=== PATIENT | female | born 1940 | race Caucasian/White ===

== ENCOUNTER 2017-10-01 19:24 | Inpatient (IN) | payer MEDICARE, BC ==
[~2017-10-01] VITALS: Ht 160 cm; Wt 67.1 kg
[~2017-10-01 19:24] MED LIST: ACETAMINOPHEN650 M5 PO; ACETAMINOPHEN650 MG RECTAL; ALBUTEROL SULFAT4 MG PO; ALDACTONE25 MG PO; AMBIEN 10 MG TA10 MG PO; AMBIEN 5 MG TABL5 M1 PO; AMLODIPINE BESYL5 MG; AMOXICILLIN/POTASSIU PO; APAP500 PO; ASPIRIN325 PO; ASPIRIN81 M2 PO; ATENOLOL 50MG T50 MG PO; ATORVASTATIN CA40 MG PO; BACTRIM DS TAB1 EACH PO; BAYER CHEWABLE81 MG PO; BROVANA15 MCG/2 M INH; CARDIZEM CD 30300 M1 PO; CARDIZEM120 MG PO; CARVEDILOL3.125 MG PO; CATAPRES OR; CELEXA20 MG PO; CELEXA40 MG PO; CENTRUM SILVER1 EAC4 PO; CIPRO500 MG PO; CO Q-10100 MG PO; COLACE 100 MG100 MG PO; COLACE100 MG PO; COZAAR 25 MG TA25 M1 PO; COZAAR 25 MG TA25 M2 PO; COZAAR 25 MG TA25 MG; CRESTOR10 MG PO; DOXYCYCLINE 10100 MG PO; DUONEB 2.5-0.5 M3 ML IH; DUONEB 2.5-0.5 M3 ML INH; ELIQUIS2.5 MG PO; ELIQUIS5 MG PO; FERROUS SULFAT325 MG PO; FLUOXETINE HCL20 M1 PO; FOLBIC RF TABL1 EACH PO; GLIPIZIDE XL10 MG PO; GLUCOPHAGE1000 MG PO; HCTZ PO; HUMALOG100 UNIT/1 SUBQ; HYDROCHLOROTH12.5 M1 PO; HYDROCODON-ACE1 EAC7; HYDROXYZINE HCL10 M1 PO; HYDROXYZINE HCL10 M2 PO; HYDROXYZINE HCL25 M1 PO; HYZAAR 50-12.51 EACH PO; IRON325 PO; KLOR-CON 1010 MEQ PO; LANOXIN 0.120.125 M3 PO; LASIX 40 MG TAB40 M2 PO; LASIX 80 MG TAB80 MG PO; LEVAQUIN 250 M250 MG PO; LEVAQUIN 500 M500 M5 PO; LEVEMIR SUBQ; LEVOTHYROXINE 0.1 MG PO; LEVOXYL75 MCG PO; LYRICA 75 MG CA75 MG PO; MAGOX 400400 MG PO; METAMUCIL1 EAC1 PO; METFORMIN HCL500 MG PO; METOLAZONE 5 MG5 MG PO; NAPROSYN500 MG PO; NIACIN 100MG T100 M1 PO; NIACIN100 GM; NITROGLYCERIN0.4 MG SL; NITROGLYCERIN0.4 MG SUBLING; NORCO 5-325 TA1 EACH PO; NORVASC 5 MG TAB5 MG PO; NOVOLOG100 UNIT/1 SQ; NOVOLOG100 UNIT/1 SUBQ; OMEPRAZOLE20 MG PO; OXYCODONE HCL 55 MG PO; PACERONE 200 M200 M1 PO; PERCOCET 10-321 EACH PO; PERCOCET PO; PLAVIX 75 MG TA75 M1 PO; PREDNISONE 10 M10 M1 PO; PREDNISONE 10 M10 MG PO; PROAIR HFA8.5 GM INH; PULMICORT0.25 MG/3 INH; PULMICORT0.5 MG/22 INH; ROBAXIN500 MG PO; SENOKOT-S1 TA1 PO; SENOKOT8.6 MG PO; SINGULAIR 10 MG10 M1 PO; STOOL SOFTENER240 MG PO; SYNTHROID100 MCG PO; SYNTHROID75 MCG PO; TENORMIN50 MG PO; TESSALON PERLE100 MG PO; THEOPHYLLINE S300 M1 PO; TYLENOL325 MG PO; ULTRACET TABLET1 TAB PO; XANAX 0.5 MG0.5 MG PO; XARELTO10 M1 PO; XOPENEX0.63 MG/3 INH; ZPAK PO; [UNRECOGNIZED DRUG - REMARK]
[2017-10-01 19:26] VITALS: BP 68/34
[2017-10-01 20:10] LABS: ABSOLUTE EOSINOPHILS 0.1 thou/uL (0.0-0.7); ABSOLUTE LYMPHOCYTES 1.6 thou/uL (0.8-5.3); ABSOLUTE MONOCYTES 0.7 thou/uL (0.0-1.2); ABSOLUTE NEUTROPHILS 4.9 thou/uL (1.6-8.1); BASOPHILS 0.7 %; EOSINOPHILS 1.2 %; HEMOGLOBIN 9.7 gm/dL (12.0-15.0); LYMPHOCYTES 21.8 %; MCH 30.5 pg (26.0-34.0); MCHC 32.2 g/dL (28.0-37.0); MCV 94.6 fL (80.0-100.0); MONOCYTES 9.8 %; MPV 8.9 fl. (7.2-11.1); NUCLEATED RBCS 0 /100WBC; PLATELET COUNT* 172 thou/uL (150-400); POLYS 66.5 %; RBC 3.17 mil/uL (4.20-5.00); RDW-CV 16.5 % (10.5-14.5); WBC 7.3 thou/uL (4.0-11.0)
[2017-10-01 20:19] LABS: CREATININE 3.6 mg/dL (0.6-1.3); POTASSIUM 3.5 mmol/L (3.5-5.1)
[2017-10-01 20:21] LABS: INR 1.3
[2017-10-01 20:30] LABS: ALBUMIN 2.5 g/dL (3.4-5.0); TOTAL BILIRUBIN 0.6 mg/dL (<0.1-1.0); TOTAL PROTEIN 5.8 g/dL (6.4-8.2); TROPONIN-I LEVEL 0.29 ng/mL (<0.06)
[2017-10-01 21:21] LABS: INFLUENZA A ANTIGEN None Detected (None Detect); INFLUENZA B ANTIGEN None Detected (None Detect)
[2017-10-01 21:26] LABS: URINE BILIRUBIN NEGATIVE (Negative); URINE BLOOD NEGATIVE (Negative); URINE CLARITY CLEAR; URINE COLOR YELLOW; URINE GLUCOSE-RANDOM NEGATIVE (Negative); URINE KETONES NEGATIVE (Negative); URINE LEUKOCYTES-REFLEX NEGATIVE (Negative); URINE NITRITE-REFLEX NEGATIVE (Negative); URINE PROTEIN NEGATIVE (Negative); URINE UROBILINOGEN 0.2 E.U./dl (0.2-1.0)
[2017-10-01 23:29] VITALS: BP 79/40
[2017-10-01 23:30] VITALS: BP 64/32
[2017-10-01 23:45] VITALS: BP 83/41
[2017-10-02] VITALS (23 sets, daily range): BP systolic 82–162; BP diastolic 48–125
[2017-10-02 03:44] LABS: HEMATOCRIT 23.6 % (37.0-47.0); MCH 30.9 pg (26.0-34.0); MCHC 32.5 g/dL (28.0-37.0); MCV 95.1 fL (80.0-100.0); MPV 8.8 fl. (7.2-11.1); RBC 2.48 mil/uL (4.20-5.00); RDW-CV 17.1 % (10.5-14.5); WBC 8.3 thou/uL (4.0-11.0)
[2017-10-02 04:25] LABS: ALBUMIN 1.9 g/dL (3.4-5.0); CALCIUM 7.4 mg/dL (8.5-10.1); CREATININE 2.9 mg/dL (0.6-1.3); HEMOGLOBIN 7.7 gm/dL (12.0-15.0); MAGNESIUM 1.7 mg/dL (1.8-2.4); POTASSIUM 3.3 mmol/L (3.5-5.1); TOTAL BILIRUBIN 0.4 mg/dL (<0.1-1.0); TOTAL PROTEIN 4.6 g/dL (6.4-8.2); TROPONIN-I LEVEL 0.29 ng/mL (<0.06)
--- NOTE | 2017-10-02 13:11 | EKG ---
[place] [address] ELECTROCARDIOGRAM REPORT Name: SCOTTY SANTAMARIA Room: [address] ADM IN [facility]#: [id number] Admission: 10/01/17 Attend Phys: Mart Rosario, Discharge: Date of : 36 Report #: [id number] THIS REPORT FOR: //name// [facility] ED Test Date: 2017-10-01 Test Time: 19:34:59 Pat Name: SCOTTY SANTAMARIA Department: Room: [facility] Gender: F Signal Worker: ELMIRA : 1940 Requested By: Michelle Patel Order Number: [id number] MD: Benny Baldwin Measurements Intervals [place] Rate: 58 P: -2 GA: 173 QRS: -22 QRSD: 97 T: 14 QT: 513 QTc: 504 Interpretive Statements Sinus rhythm Borderline left axis deviation Prolonged QT interval Compared to ECG 09/12/2017 07:49:04 Prolonged QT interval now present Ectopic atrial rhythm no longer present Intraventricular conduction delay no longer present Myocardial infarct finding no longer present Electronically Signed On 10-02-2017 13:11:44 HOME HEALTH LPN by Benny Baldwin [email or web address] <ELECTRONICALLY SIGNED> By: Benny Baldwin MD, FACC 10/02/17 1311 33 33 Benny Baldwin MD, FACC /EPI
[2017-10-03] VITALS (22 sets, daily range): BP systolic 88–159; BP diastolic 42–119
[2017-10-03 04:22] LABS: ALBUMIN 1.9 g/dL (3.4-5.0); CALCIUM 7.9 mg/dL (8.5-10.1); CREATININE 2.2 mg/dL (0.6-1.3); MAGNESIUM 1.7 mg/dL (1.8-2.4); PHOSPHORUS* 1.8 mg/dL (2.5-4.9); POTASSIUM 3.3 mmol/L (3.5-5.1)
--- NOTE | 2017-10-03 08:46 | CON ---
[address] [address] CONSULTATION Name: SCOTTY SANTAMARIA Room: [address] IN .R.#: [id number] Admission: 10/01/17 Attend Phys: Mart Rosario, Discharge: Date of : 38 Report #: [id number] THIS REPORT FOR: //name// CC: Danny Rosario DATE OF SERVICE: 10/02/2017 ATTENDING PHYSICIAN: Mart Rosario MD REASON FOR EVALUATION: Sepsis, pneumonitis. HISTORY OF PRESENT ILLNESS: Chart reviewed, patient examined. This is a 77-year-old female with a fairly extensive medical history, does have diabetes mellitus. She is somewhat debilitated, resides in a chcf who had a period of progressive dyspnea, also some encephalopathy, associated cough. She was transitioned to the Emergency Room where she was evaluated. Influenza antigen was negative. Chest x-ray showed chronic changes of cardiomegaly without evidence of congestive heart failure. She did have some hemodynamic instability and was continued care in the Intensive Care Unit, now confirmed to have a positive blood culture. She is generally lucid, is quite weak. Denies urinary difficulties. The UA was in fact unrevealing, empirically dosed with ceftriaxone and vancomycin. ALLERGIES: LISTED TO PENICILLIN WHICH CAUSES URTICARIA. CURRENT MEDICATIONS: Include senna, multivitamin, magnesium oxide, budesonide, aspirin, amiodarone, apixaban, ferrous sulfate, levothyroxine, is on norepinephrine as well per drip. PAST MEDICAL HISTORY: As noted above, history of reactive airway with asthma, hypothyroidism, hyperlipidemia, previous TIAs, diabetes mellitus, hypertension, COPD, cardiomyopathy with history of congestive heart failure, has known coronary artery disease with previous stenting, previous history of breast cancer, tongue cancer. SOCIAL HISTORY: Former smoker, occasional ethanol. FAMILY HISTORY: Noncontributory. REVIEW OF SYSTEMS: As above. PHYSICAL EXAMINATION: GENERAL: She is alert, cooperative, is in mild distress. She is on supplemental oxygen per nasal cannula. She is slightly anxious, [place] [address] CONSULTATION Name: SCOTTY SANTAMARIA Room: [address]#: [id number] Admission: 10/01/17 Attend Phys: Mart Rosario, Discharge: Date of : 38 Report #: [id number] VITAL SIGNS: Temperature 98.7, pulse 83, respirations 20, blood pressure 112/64. SKIN: Warm, dry, no rashes. HEENT: Otherwise, unremarkable. NECK: Supple. LUNGS: Few scattered coarse breath sounds. HEART: Regular. I do not appreciate any murmur. ABDOMEN: Soft, nontender, nondistended. EXTREMITIES: No cyanosis. GENITOURINARY: Deferred. RECTAL: Deferred. LABORATORY DATA: Blood cultures described above, gram-positive cocci 1/2. Electrolytes: Sodium 138, potassium 3.3, chloride 100, bicarbonate is 27, anion gap of 11, BUN and creatinine 88 and 2.9. Glucose of 220. AST of 81, ALT of 106, albumin 1.9, total protein of 4.6. Estimated GFR of 16. CBC: White count of 8.3, H and H 7.7/23.6, platelets of 145. Prealbumin of 14.4. Lactic acid 1.0. Urinalysis unremarkable. Influenza antigen was negative. ASSESSMENT: Sepsis, now with positive blood cultures, not to say with any certainty, but we will treat as if it is positive. We dosed the vancomycin adjusted for her renal failure, again may have an early pneumonitis as well. This really moved fairly quickly. At this point, she seems not to be clinically deteriorating on treatment. See how she does with the current approach. At this point, we would not favor any invasive procedures. We will try to collect a sputum. <ELECTRONICALLY SIGNED> By: Clyde Perdue MD 10/03/17 0846 1417 [id number] Perdue MD /nt
[2017-10-04] VITALS (22 sets, daily range): BP systolic 99–155; BP diastolic 38–87
[2017-10-04 04:58] LABS: HEMOGLOBIN 7.2 gm/dL (12.0-15.0); MCH 31.1 pg (26.0-34.0); MCHC 32.9 g/dL (28.0-37.0); MCV 94.5 fL (80.0-100.0); MPV 8.6 fl. (7.2-11.1); RBC 2.33 mil/uL (4.20-5.00); RDW-CV 17.4 % (10.5-14.5); WBC 3.3 thou/uL (4.0-11.0)
[2017-10-04 05:18] LABS: CALCIUM 8.2 mg/dL (8.5-10.1); POTASSIUM 4.1 mmol/L (3.5-5.1)
[2017-10-04 09:51] LABS: BE -6.6 mmol/L (-2 to +3); HCO3 18.9 mmol/L (22.0-26.0); PCO2 37.7 mmHg (35.0-45.0); pH 7.319 (7.340-7.450)
[2017-10-04 10:32] LABS: PO2 37.2 mmHg (75.0-100.0)
--- NOTE | 2017-10-04 11:21 | CON ---
[address] [address] CONSULTATION Name: SCOTTY SANTAMARIA Room: [address] IN .R.#: [id number] Admission: 10/01/17 Attend Phys: Mart Rosario, Discharge: Date of : 38 Report #: [id number] THIS REPORT FOR: //name// CC: Danny Rosario REASON FOR CONSULTATION: Acute respiratory failure and pneumonia. HISTORY OF PRESENT ILLNESS: The patient is a 77-year-old female patient with history of COPD and chronic respiratory failure. She is on 2 liter oxygen at baseline. She presented through the EMS from [facility] and admitted on 10/01/2017 with a chief complaint of shortness of breath a few hours prior to hospitalization. She was hypotensive, and actually, she was admitted to the ICU and started on vasopressors. She had diabetes mellitus and as mentioned above, lives in a longterm. She had cough and some encephalopathy upon presentation. Her chest x-ray showed some changes and her influenza screen was negative. She required vasopressors until yesterday. Apparently, her oxygenation and respiratory status have been improving with Rocephin and vancomycin, but she had progressive worsening in her chest x-ray for the last few days. This morning, she developed respiratory distress and she was placed on BiPAP. When I saw her, she was on BiPAP, comfortable at 60% and seems to be tolerating that well. Also noted that she started coughing up bloody sputum. She is on Eliquis at baseline. Her echocardiogram demonstrated ejection fraction of 55%, with mitral regurgitation and moderate tricuspid regurgitation. PAST MEDICAL HISTORY: Coronary artery disease, status post PCI in the past, right coronary with mild disease. She has mitral regurgitation. She has diabetes mellitus and chronic kidney disease. History of COPD and chronic respiratory failure, on home oxygen. Previous history of hysterectomy, hemorrhoidectomy, bilateral breast cancer with lump removal, status post tongue surgery for cancer, diabetes mellitus, hypertension, arthritis, D and C in the past, cardiac stents and history of CHF. ALLERGIES: PENICILLIN. MEDICATIONS: Prior to hospitalization, Synthroid, Ambien, Tylenol, metolazone, amiodarone, apixaban, losartan, Lasix 80 mg daily, aspirin and Tylenol p.r.n. CURRENT MEDICATIONS: She is on cefepime, alprazolam. She received Lasix today. She is on nebulization treatment. She is on vancomycin, steroids, pantoprazole, melatonin. She is off Levophed since yesterday. REVIEW OF SYSTEMS: She denied abdominal pain, nausea or vomiting. She denied bleeding tendency, but she started coughing up bloody sputum today. She denied dysuria. She has some bruises on her skin, but no active bleeding from the skin. Rest of the review [place] [address] CONSULTATION Name: SANTAMARIASCOTTY Isabel Room: [address] IN [facility]#: [id number] Admission: 10/01/17 Attend Phys: Mart Rosario, Discharge: Date of : 38 Report #: [id number] SOCIAL HISTORY: Ex-smoker, quit around a year ago. Does not drink alcohol excessively. Does not abuse drugs. Resident of a longterm. PHYSICAL EXAMINATION: VITAL SIGNS: On examination, she was on BiPAP at 60% with saturation 99%, blood pressure was 64/87 and pulse rate of 98. No fever. HEENT: Head normocephalic, atraumatic. Pupils are equal and reactive to light. Extraocular muscle movements intact. External ears look healthy and normal. Oral cavity not examined. She has BiPAP mask in place. NECK: Supple. No palpable lymph node. No palpable thyroid. Trachea central. CHEST: Diminished air movement bilaterally. Crackles and wheezes heard bilaterally, with prolonged expiratory phase. HEART: S1, S2. Faint systolic murmur. ABDOMEN: Benign, soft, lax and nontender. LOWER EXTREMITIES: Trace edema. No calf tenderness. MUSCULOSKELETAL: Normal inspection. No deformities. No contracture. PSYCHIATRIC: Mood and affect slightly confused, but calm on the BiPAP and quiet, tolerating the BiPAP well. NEUROLOGIC: Moving 4 extremities spontaneously. No focal weakness. LABORATORY DATA: Her white blood count upon hospitalization was 7.3, it is 3.3 today; hemoglobin was 9.7, it is 7.2 today and platelets today are 166,000. Her creatinine is 2, which improved when compared to 3.6 upon hospitalization. Potassium 4.1. Her BNP upon presentation was high. Her INR was 1.3. Influenza screen is negative. She had multiple chest x-rays and CT scan showed progressive infiltrate, worsening over the course of hospitalization. IMPRESSION: 1. Krgff-lo-uhbqdgz respiratory failure, hypoxic. 2. Chronic obstructive pulmonary disease exacerbation. 3. Pneumonia. 4. Sepsis. 5. Hypotension. 6. Hemoptysis, no masses. I agree with stopping the anticoagulants at this point due to hemoptysis. I would continue the steroids, antibiotics per ID. I agree with the sputum culture and sensitivity. Continue BiPAP support, she is tolerating that well. We will follow along with ABGs and make adjustment accordingly. Her chest x-rays is worsening. Hopefully, we will try to avoid intubation. I would keep n.p.o. for today. She received Lasix this morning with minimal urine output; we will do a repeat. Continue to monitor her kidney function. [address] [address] CONSULTATION Name: SCOTTY SANTAMARIA Room: [address] IN [facility].#: [id number] Admission: 10/01/17 Attend Phys: Mart Rosario, Discharge: Date of : 38 Report #: [id number] CONDITION: Guarded. PROGNOSIS: Guarded. Thank you for the consult. <ELECTRONICALLY SIGNED> By: Jad Morgan MD 10/04/17 1121 0940 [id number] Morgan MD /nt
[2017-10-04 16:05] LABS: HEMATOCRIT 22.3 % (37.0-47.0); HEMOGLOBIN 7.2 gm/dL (12.0-15.0)
[2017-10-05] VITALS (21 sets, daily range): BP systolic 111–151; BP diastolic 29–61
[2017-10-05 04:14] LABS: HEMATOCRIT 20.7 % (37.0-47.0); MCH 30.8 pg (26.0-34.0); MCHC 32.8 g/dL (28.0-37.0); MPV 9.1 fl. (7.2-11.1); RBC 2.21 mil/uL (4.20-5.00); RDW-CV 17.2 % (10.5-14.5); WBC 6.7 thou/uL (4.0-11.0)
[2017-10-05 04:19] LABS: CALCIUM 8.7 mg/dL (8.5-10.1); MAGNESIUM 2.2 mg/dL (1.8-2.4); POTASSIUM 3.6 mmol/L (3.5-5.1)
[2017-10-05 05:12] LABS: HEMOGLOBIN 6.8 gm/dL (12.0-15.0)
[2017-10-05 11:34] LABS: BE -1.7 mmol/L (-2 to +3); HCO3 22.4 mmol/L (22.0-26.0); PO2 107.2 mmHg (75.0-100.0); pH 7.424 (7.340-7.450)
[2017-10-05 17:33] LABS: HEMATOCRIT 24.5 % (37.0-47.0); HEMOGLOBIN 8.1 gm/dL (12.0-15.0)
[2017-10-06] VITALS (11 sets, daily range): BP systolic 107–139; BP diastolic 36–72
[2017-10-06 03:43] LABS: HEMATOCRIT 23.3 % (37.0-47.0); HEMOGLOBIN 7.8 gm/dL (12.0-15.0); MCHC 33.4 g/dL (28.0-37.0); MCV 92.6 fL (80.0-100.0); MPV 8.5 fl. (7.2-11.1); RBC 2.51 mil/uL (4.20-5.00); RDW-CV 17.2 % (10.5-14.5)
[2017-10-06 03:52] LABS: CREATININE 2.2 mg/dL (0.6-1.3); MAGNESIUM 2.3 mg/dL (1.8-2.4); POTASSIUM 3.7 mmol/L (3.5-5.1)
[2017-10-07] VITALS: BP 136/45
[2017-10-07 04:00] VITALS: BP 131/49
[2017-10-07 08:00] VITALS: BP 144/62
--- NOTE | 2017-10-07 08:41 | CON ---
[address] [address] CONSULTATION Name: SCOTTY SANTAMARIA Room: [address] IN .R.#: [id number] Admission: 10/01/17 Attend Phys: Mart Rosario, Discharge: Date of : 38 Report #: [id number] THIS REPORT FOR: //name// CC: Danny Rosario DATE OF SERVICE: 10/02/2017 INPATIENT CONSULT REQUESTING PHYSICIAN: Mart Rosario MD REASON FOR CONSULTATION: Hypotension, abnormal troponin level, atrial fibrillation. HISTORY OF PRESENT ILLNESS: The patient is a 77-year-old female who was admitted through the Emergency Department via a local nursing facility with hypotension, decreased level of consciousness, and I am asked to see her because her current troponin level was increased to 0.29. She presented in renal failure with increased serum creatinine of 2.9. She is responsive and had transiently required pressors overnight and is still on a low dose of Levophed along with IV fluids. She is lucid this morning though and denies any complaints of chest pain or pressure, which was really not part of her initial presentation. She had not been having weight gain or fluid retention. She carries a diagnosis of coronary artery disease and underwent PCI at this institution in the past. Her presenting ECG did not show any acute ST segment changes. She has been in atrial fibrillation with heart rates well controlled. With this, she is asymptomatic for tachypalpitation. She denies syncope or presyncope. In the past, she has had a prior stroke about 10 years ago, but denies any new neuro symptoms, headaches, blurry vision or visual changes and has no focal neurologic deficits on examination. PAST MEDICAL HISTORY: She has a history of coronary artery disease. In 2014, she underwent a PCI to her left anterior descending coronary artery. The right coronary had mild disease. There are severe disease in branch vessel diagonals. Circumflex has had a previous stent in, but was widely patent. There is no . She had an echocardiogram August of last year, which demonstrated an ejection fraction of 55-60%, epro-dl-blfzgsyk mitral regurgitation, moderate tricuspid regurgitation and no aortic stenosis. She has diabetes mellitus, [place] [address] CONSULTATION Name: SCOTTY SANTAMARIA Room: [address] IN [facility]#: [id number] Admission: 10/01/17 Attend Phys: Mart Rosario, Discharge: Date of : 38 Report #: [id number] COPD, chronic kidney disease, falls and frequent urinary tract and respiratory infection. ALLERGIES: HE HAS ALLERGIES TO PENICILLIN. MEDICATIONS: Her [facility] medications include Tylenol, Ambien, Synthroid 75 mcg daily, metolazone 5 mg p.r.n., amiodarone 200 mg daily, apixaban 5 mg p.o. b.i.d., losartan 25 mg daily, Lasix 80 mg daily, aspirin 81 mg daily, p.r.n., Tylenol p.r.n. REVIEW OF SYSTEMS: GASTROINTESTINAL: No abdominal pain, nausea, vomiting, hematemesis. NEUROLOGIC: Denies headaches, blurry vision, seizures. HEMATOLOGIC: No anemia or bleeding disorders. RENAL: Positive history of kidney disease. CARDIOVASCULAR: No chest pain, no orthopnea. Positive dyspnea. No palpitations. GENITOURINARY: No dysuria. SKIN: Numerous bruises but denies any active bleeding. She does have a history of fall, but has not had any recent fall. ENDOCRINE: Positive diabetes, positive thyroid disease. MUSCULOSKELETAL: No joint pain or complaints. GENITOURINARY: No dysuria. PHYSICAL EXAMINATION: VITAL SIGNS: Today, her blood pressure is in the 90s/50s with a low dose of Levophed 5 mcg, pulse is 90-110 in atrial fibrillation. O2 sats greater than 95%, weight 66 kilograms. GENERAL: This is a cachectic elderly female. She is alert and oriented. NECK: Supple. No jugular venous distention. CARDIOVASCULAR: Irregular. There is faint systolic murmur at the apex. LUNGS: Diminished breath sounds. ABDOMEN: Nontender. EXTREMITIES: There is no peripheral edema. There is peripheral wasting. She is wearing SCDs. SKIN: She has numerous ecchymoses. NEURO: There are no focal deficits. LABORATORY DATA: Electrocardiogram demonstrates atrial fibrillation with nonspecific ST segment abnormalities. She presented initially in sinus rhythm with heart rate of 58, but then went into atrial fibrillation. Her initial presenting, ECG showed a sinus rhythm. Hemoglobin is 7.7, white blood count is 8.3, platelet count is 145,000. Sodium 138, potassium 3.3, chloride 100, BUN is 88, creatinine is 2.9, glucose is 220, AST is 81, ALT is 106. Troponin I is 0.29. [place]R [place] 1[place] [address] CONSULTATION Name: SCOTTY SANTAMARIA Room: [address] IN [facility].#: [id number] Admission: 10/01/17 Attend Phys: Mart Rosario, Discharge: Date of : 38 Report #: [id number] Chest x-ray reveals cardiomegaly, but no heart failure. IMPRESSION: 1. Hypotension. I think this is multifactorial. I think she has sepsis syndrome along with volume depletion and anemia. She is on volume resuscitation and pressor agent. 2. Paroxysmal atrial fibrillation. She went back in atrial fibrillation, likely due to the hemodynamic stress of her illness as well as her pressor agent. I would continue with amiodarone for rate control and reintroduce medications as her blood pressure tolerates. 3. Anticoagulation. At this point in time, I would hold it as she presents anemic and she has acute on chronic kidney disease and a decreased clearance. If her prognosis improved, I would restart at a lower dose of 2.5 mg given her kidney disease. She has a very high stroke risk. 4. Prior cerebrovascular accident as noted above. She has an elevated CHADS-VASc score, but she has no acute neurologic symptoms. 5. Elevated cardiac troponin levels. She does have a history of coronary artery disease, but I doubt this is secondary to an acute ischemic, unstable angina etiology. I would continue with conservative medical therapy with aspirin. Her ECG did not show any dynamic ST segment abnormalities. 6. Sepsis syndrome. She is on broad spectrum antibiotics. <ELECTRONICALLY SIGNED> By: Benny Baldwin MD, [facility] 10/07/17 0841 1044 [id number] Baldwin MD, FACC /nt
[2017-10-07 11:39] VITALS: BP 144/62
[2017-10-07 12:07] VITALS: BP 100/59
[2017-10-07 15:54] VITALS: BP 128/66
--- NOTE | 2017-10-07 16:22 | CON ---
[address] [address] CONSULTATION Name: SCOTTY SANTAMARIA Room: [address] IN M.R.#: [id number] Admission: 10/01/17 Attend Phys: Mart Rosario, Discharge: Date of : 38 Report #: [id number] THIS REPORT FOR: //name// CC: Danny Rosario CONSULTING PHYSICIAN: Mart Rosario MD REASON FOR CONSULTATION: Acute kidney injury. HISTORY OF PRESENT ILLNESS: A 77-year-old female who was hospitalized here recently admitted with shortness of breath while at [facility], had abnormal labs and was admitted. She had an elevated creatinine up to 3.6; when she was here in August, it was down to 2.4. She most recently hospitalized last month with respiratory failure, pneumonia, COPD exacerbation and jvszd-ng-gwackzb CHF. She appears to be comfortable now, does not have any complaints. REVIEW OF SYSTEMS: Constitutional, psych, heme, eyes, ENT, respiratory, cardiac, GI, , endocrine, all negative except as documented above. She denies any recent nausea, vomiting, diarrhea, new medications, NSAIDs, new antibiotics. PAST MEDICAL HISTORY: Chronic kidney disease stage 4, hypothyroidism, asthma, history of TIA, dyslipidemia, history of breast cancer with lumpectomies, history of cancer of the tongue treated with surgery, history of hypertension, diabetes, COPD and chronic heart failure. FAMILY HISTORY: Not pertinent in this 77-year-old female. MEDICATIONS: Reviewed. SOCIAL HISTORY: No tobacco. PHYSICAL EXAMINATION: VITAL SIGNS: Blood pressure 112/64, pulse 83, temperature 37.1. GENERAL: No acute distress. EYES: Extraocular movements intact. EARS: Externally normal. CARDIOVASCULAR: Regular rate. LUNGS: Diminished breath sounds. ABDOMEN: Soft. MUSCULOSKELETAL: Nontender. PSYCHIATRIC: Awake, alert. LABORATORY DATA: White cell count 8.3, hemoglobin 7.7, platelets 145. Sodium 138, potassium 3.3, chloride 100, bicarbonate 27, BUN 80, creatinine 2.9, glucose 220, calcium is 7.4. Magnesium 1.7. Albumin 1.9[place] [address] CONSULTATION Name: SANTAMARIASCOTTY Isabel Room: [address]#: [id number] Admission: 10/01/17 Attend Phys: Mart Rosario, Discharge: Date of : 38 Report #: [id number] ASSESSMENT: 1. Acute kidney injury secondary to hypotension with blood pressures as low as 60s systolic, admission creatinine of 3.6. UA was okay. 09/20, creatinine was 2.4 and in July, she had a creatinine up to 4.7 and back in 01/2017, her creatinine was at 1.6. She does not have an outpatient kidney doctor. 2. On 09/21/2017, EF 55-60% with moderate tricuspid regurgitation and right ventricular systolic pressure of 35-40 3. Moderate tricuspid regurgitation. 4. Anemia with an admission hemoglobin of 9.7 down to 7.7 on 10/02. Eliquis was held. 5. Hypoalbuminemia. 6. Chronic kidney disease stage 4. Baseline creatinine probably in the 1.6-1.8 range. PLAN: 1. She is making urine, creatinine trending down. Anemia being managed by Internal Medicine. 2. Replace potassium. 3. Replace magnesium. 4. Check kidney ultrasound. 5. Check labs again in the a.m. Thank you for requesting my opinion in the care and management of this patient. <ELECTRONICALLY SIGNED> By: Misael Wong MD 10/07/17 1622 1225 [id number] Wong MD /nt
[2017-10-08] VITALS: BP 136/66
[2017-10-08 04:12] VITALS: BP 158/55
[2017-10-08 05:41] LABS: HEMATOCRIT 23.3 % (37.0-47.0); HEMOGLOBIN 7.7 gm/dL (12.0-15.0); MCHC 33.1 g/dL (28.0-37.0); MCV 93.7 fL (80.0-100.0); MPV 8.8 fl. (7.2-11.1); RBC 2.49 mil/uL (4.20-5.00); RDW-CV 17.1 % (10.5-14.5); WBC 5.9 thou/uL (4.0-11.0)
[2017-10-08 06:00] LABS: CREATININE 2.3 mg/dL (0.6-1.3); MAGNESIUM 2.3 mg/dL (1.8-2.4); POTASSIUM 3.4 mmol/L (3.5-5.1)
[2017-10-08 08:00] VITALS: BP 124/53
[2017-10-08 11:52] VITALS: BP 144/89
[2017-10-08 12:22] LABS: CALCIUM 9.6 mg/dL (8.5-10.1); CREATININE 2.3 mg/dL (0.6-1.3); MAGNESIUM 2.4 mg/dL (1.8-2.4); POTASSIUM 3.1 mmol/L (3.5-5.1)
[2017-10-08 16:17] VITALS: BP 157/55
[2017-10-08 19:40] VITALS: BP 181/61
[2017-10-09] VITALS: BP 158/96
[2017-10-09 04:00] VITALS: BP 147/79
[2017-10-09 08:00] VITALS: BP 208/92
[2017-10-09 11:28] VITALS: BP 176/69
[2017-10-09 12:58] LABS: BE -0.6 mmol/L (-2 to +3); HCO3 23.4 mmol/L (22.0-26.0); PCO2 35.9 mmHg (35.0-45.0); PO2 139.1 mmHg (75.0-100.0); pH 7.432 (7.340-7.450)
[2017-10-09 14:00] LABS: CALCIUM 9.5 mg/dL (8.5-10.1); CREATININE 2.4 mg/dL (0.6-1.3); MAGNESIUM 2.3 mg/dL (1.8-2.4); POTASSIUM 3.8 mmol/L (3.5-5.1)
[2017-10-09 16:09] VITALS: BP 155/63
[2017-10-09 16:33] LABS: HEMATOCRIT 26.6 % (37.0-47.0); HEMOGLOBIN 8.9 gm/dL (12.0-15.0); MCH 31.4 pg (26.0-34.0); MCHC 33.4 g/dL (28.0-37.0); MCV 94.1 fL (80.0-100.0); MPV 8.1 fl. (7.2-11.1); RBC 2.82 mil/uL (4.20-5.00); RDW-CV 16.8 % (10.5-14.5); WBC 9.5 thou/uL (4.0-11.0)
[2017-10-10 00:29] VITALS: BP 149/69
[2017-10-10 04:00] VITALS: BP 139/46
[2017-10-10 05:27] LABS: HEMATOCRIT 23.7 % (37.0-47.0); HEMOGLOBIN 7.9 gm/dL (12.0-15.0); MCH 31.4 pg (26.0-34.0); MCHC 33.3 g/dL (28.0-37.0); MCV 94.2 fL (80.0-100.0); MPV 8.3 fl. (7.2-11.1); RBC 2.52 mil/uL (4.20-5.00); RDW-CV 17.3 % (10.5-14.5); WBC 6.7 thou/uL (4.0-11.0)
[2017-10-10 05:54] LABS: ALBUMIN 2.2 g/dL (3.4-5.0); CALCIUM 9.2 mg/dL (8.5-10.1); CREATININE 2.3 mg/dL (0.6-1.3); MAGNESIUM 2.3 mg/dL (1.8-2.4); TOTAL BILIRUBIN 0.6 mg/dL (<0.1-1.0); TOTAL PROTEIN 4.5 g/dL (6.4-8.2)
[2017-10-10 08:49] VITALS: BP 95/56
[2017-10-10 11:30] VITALS: BP 132/62
[2017-10-10 15:30] VITALS: BP 154/65
[2017-10-10 20:00] VITALS: BP 128/42
[2017-10-11 00:22] VITALS: BP 137/57
[2017-10-11 04:00] VITALS: BP 140/62
[2017-10-11 06:09] LABS: HEMATOCRIT 26.2 % (37.0-47.0); HEMOGLOBIN 8.4 gm/dL (12.0-15.0); MCH 30.4 pg (26.0-34.0); MCHC 31.9 g/dL (28.0-37.0); MCV 95.4 fL (80.0-100.0); MPV 8.2 fl. (7.2-11.1); NUCLEATED RBCS 0 /100WBC; PLATELET COUNT* 327 thou/uL (150-400); RBC 2.75 mil/uL (4.20-5.00); RDW-CV 17.7 % (10.5-14.5); WBC 10.6 thou/uL (4.0-11.0)
[2017-10-11 06:21] LABS: CALCIUM 9.5 mg/dL (8.5-10.1); CREATININE 2.1 mg/dL (0.6-1.3); MAGNESIUM 2.3 mg/dL (1.8-2.4); POTASSIUM 3.8 mmol/L (3.5-5.1)
[2017-10-11 06:48] LABS: ABSOLUTE LYMPHOCYTES 1.4 thou/uL (0.8-5.3); ABSOLUTE MONOCYTES 0.5 thou/uL (0.0-1.2); ABSOLUTE NEUTROPHILS 8.7 thou/uL (1.6-8.1); OVALOCYTES 1+; PLATELET ESTIMATE ADEQUATE; TARGET CELLS Occasional
[2017-10-11 06:49] LABS: ANISOCYTOSIS 1+; POIKILOCYTOSIS 1+; POLYCHROMASIA Occasional
[2017-10-11 08:00] VITALS: BP 126/98
[2017-10-11] MEDS ORDERED: CEFUROXIME250 MG PO (11:43)
[2017-10-11 12:02] VITALS: BP 147/68
[2017-10-11] MEDS ORDERED: PROTONIX40 M1 PO (12:02)
[2017-10-11] MEDS ORDERED: PREDNISONE 10 M10 MG PO (12:06)
[2017-10-11 15:51] VITALS: BP 140/57
--- NOTE | 2017-11-16 13:45 | CON ---
[address] [address] CONSULTATION Name: SCOTTY SANTAMARIA Room: [address] IN .R.#: [id number] Admission: 10/01/17 Attend Phys: Mart Rosario, Discharge: 10/11/17 Date of : 38 Report #: [id number] THIS REPORT FOR: //name// CC: Danny Rosario REASON FOR CONSULTATION: Evaluation and recommendations regarding post-acute rehabilitation in a 77-year-old female with complicated hospital stay and multiple medical comorbidities. The patient was ultimately brought to acute inpatient rehabilitation and full consult was not completed due to the timing of the admission. <ELECTRONICALLY SIGNED> By: Leigh Shultz DO 11/16/17 1345 1542 [id number] Shultz DO /nt
== END 2017-10-11 18:05 | DRG 871 ==
LOC: M.ERS 19:24 → M.TBA-ER 22:26 → M.ICU 22:26 → M.2W 10-06 10:17
PROVIDERS: Emergency Medicine; Internal Medicine; Internal Medicine Nephrology; ADMIT Family Medicine
PROC: 05HM33Z Insertion of Infusion Device into Right Internal Jugular Vein, Percutaneous Approach (ICD-10-PCS; principal; 2017-10-01)
PROC: 5A09357 Assistance with Respiratory Ventilation, Less than 24 Consecutive Hours, Continuous Positive Airway Pressure (ICD-10-PCS; 2017-10-04)
PROC: 30233N1 Transfusion of Nonautologous Red Blood Cells into Peripheral Vein, Percutaneous Approach (ICD-10-PCS; 2017-10-05)
PROC: 5A09357 Assistance with Respiratory Ventilation, Less than 24 Consecutive Hours, Continuous Positive Airway Pressure (ICD-10-PCS; 2017-10-09)
DX: A41.89 Other specified sepsis (principal); J15.9 Unspecified bacterial pneumonia; R65.21 Severe sepsis with septic shock; N17.0 Acute kidney failure with tubular necrosis; I50.33 Acute on chronic diastolic (congestive) heart failure; J96.21 Acute and chronic respiratory failure with hypoxia; I13.0 Hypertensive heart and chronic kidney disease with heart failure and stage 1 through stage 4 chronic kidney disease, or unspecified chronic kidney disease; N18.4 Chronic kidney disease, stage 4 (severe); E46 Unspecified protein-calorie malnutrition; K92.2 Gastrointestinal hemorrhage, unspecified; R04.89 Hemorrhage from other sites in respiratory passages; J44.0 Chronic obstructive pulmonary disease with (acute) lower respiratory infection; J44.1 Chronic obstructive pulmonary disease with (acute) exacerbation; J45.909 Unspecified asthma, uncomplicated; E78.5 Hyperlipidemia, unspecified; I48.0 Paroxysmal atrial fibrillation; E11.22 Type 2 diabetes mellitus with diabetic chronic kidney disease; E03.9 Hypothyroidism, unspecified; D64.9 Anemia, unspecified; I25.10 Atherosclerotic heart disease of native coronary artery without angina pectoris; E87.6 Hypokalemia; I27.20 Pulmonary hypertension, unspecified; F41.9 Anxiety disorder, unspecified; E88.09 Other disorders of plasma-protein metabolism, not elsewhere classified; Z86.73 Personal history of transient ischemic attack (TIA), and cerebral infarction without residual deficits; Z90.711 Acquired absence of uterus with remaining cervical stump; Z90.49 Acquired absence of other specified parts of digestive tract; Z95.5 Presence of coronary angioplasty implant and graft; Z88.0 Allergy status to penicillin; Z79.01 Long term (current) use of anticoagulants; Z87.440 Personal history of urinary (tract) infections; Z87.891 Personal history of nicotine dependence; Z85.3 Personal history of malignant neoplasm of breast; Z85.810 Personal history of malignant neoplasm of tongue; Z79.4 Long term (current) use of insulin; Z68.26 Body mass index [BMI] 26.0-26.9, adult

== ENCOUNTER 2017-10-11 16:24 | Inpatient (IN) | payer MEDICARE, BC ==
[~2017-10-11] VITALS: Ht 160 cm; Wt 54.2 kg
[~2017-10-11 16:24] MED LIST changes: +CEFUROXIME250 MG PO; +PROTONIX40 M1 PO
[2017-10-11 18:20] VITALS: BP 115/46
[2017-10-12 06:03] LABS: HEMATOCRIT 24.8 % (37.0-47.0); HEMOGLOBIN 8.2 gm/dL (12.0-15.0); MCH 31.7 pg (26.0-34.0); MCHC 33.1 g/dL (28.0-37.0); MCV 95.7 fL (80.0-100.0); MPV 7.9 fl. (7.2-11.1); RBC 2.6 mil/uL (4.20-5.00); WBC 10.9 thou/uL (4.0-11.0)
[2017-10-12 06:08] LABS: CALCIUM 9.2 mg/dL (8.5-10.1); CREATININE 2.2 mg/dL (0.6-1.3); POTASSIUM 3.5 mmol/L (3.5-5.1)
[2017-10-12 08:00] VITALS: BP 100/67
[2017-10-12 20:40] VITALS: BP 107/66
[2017-10-13 15:03] LABS: URINE BILIRUBIN NEGATIVE (Negative); URINE BLOOD NEGATIVE (Negative); URINE CLARITY CLEAR; URINE COLOR YELLOW; URINE GLUCOSE-RANDOM NEGATIVE (Negative); URINE KETONES NEGATIVE (Negative); URINE LEUKOCYTES-REFLEX TRACE (Negative); URINE NITRITE-REFLEX NEGATIVE (Negative); URINE PROTEIN NEGATIVE (Negative); URINE UROBILINOGEN 0.2 E.U./dl (0.2-1.0)
[2017-10-13 15:11] LABS: HYALINE CASTS 4-10 Moderate /LPF (None Seen); SQUAMOUS 4-10 Moderate /LPF (0-3)
[2017-10-13 15:12] LABS: CRYSTALS None Seen /LPF (None Seen); MUCUS None Seen strn/LPF (None Seen)
[2017-10-13 15:13] LABS: URINE WBC-REFLEX 0-5 Rare /HPF (0-5); YEAST-REFLEX Present (None Seen)
[2017-10-13 15:15] LABS: BACTERIA-REFLEX 1-9 Few /HPF (None Seen)
[2017-10-13 15:16] LABS: URINE RBC None Seen /HPF (0-2)
[2017-10-13 19:50] VITALS: BP 87/44
[2017-10-14 04:32] LABS: ABSOLUTE LYMPHOCYTES 0.6 thou/uL (0.8-5.3); ABSOLUTE MONOCYTES 0.8 thou/uL (0.0-1.2); ABSOLUTE NEUTROPHILS 7.6 thou/uL (1.6-8.1); BASOPHILS 0.2 %; EOSINOPHILS 0.4 %; HEMATOCRIT 26.2 % (37.0-47.0); HEMOGLOBIN 8.7 gm/dL (12.0-15.0); LYMPHOCYTES 6.6 %; MCH 31.4 pg (26.0-34.0); MCHC 33.1 g/dL (28.0-37.0); MCV 94.9 fL (80.0-100.0); MONOCYTES 8.8 %; MPV 7.7 fl. (7.2-11.1); NUCLEATED RBCS 0 /100WBC; PLATELET COUNT* 262 thou/uL (150-400); RBC 2.76 mil/uL (4.20-5.00); RDW-CV 17.7 % (10.5-14.5)
[2017-10-14 05:14] LABS: ALBUMIN 2.2 g/dL (3.4-5.0); CALCIUM 9.1 mg/dL (8.5-10.1); CREATININE 2.1 mg/dL (0.6-1.3); POTASSIUM 3.5 mmol/L (3.5-5.1); TOTAL BILIRUBIN 0.4 mg/dL (<0.1-1.0); TOTAL PROTEIN 4.3 g/dL (6.4-8.2)
[2017-10-14 08:32] VITALS: BP 96/60
[2017-10-14 12:17] VITALS: BP 109/64
[2017-10-14 20:40] VITALS: BP 148/44
[2017-10-15 07:30] VITALS: BP 124/52
[2017-10-15 20:12] VITALS: BP 136/57
[2017-10-16 07:30] VITALS: BP 129/51
[2017-10-16 18:02] VITALS: BP 123/54
[2017-10-16 19:38] VITALS: BP 116/38
[2017-10-17 04:18] LABS: HEMOGLOBIN 9.3 gm/dL (12.0-15.0); MCH 31.4 pg (26.0-34.0); MCHC 34.5 g/dL (28.0-37.0); MCV 91.2 fL (80.0-100.0); MPV 7.8 fl. (7.2-11.1); NUCLEATED RBCS 0 /100WBC; PLATELET COUNT* 214 thou/uL (150-400); RBC 2.96 mil/uL (4.20-5.00); RDW-CV 16.9 % (10.5-14.5); WBC 9.6 thou/uL (4.0-11.0)
[2017-10-17 04:54] LABS: ALBUMIN 2.2 g/dL (3.4-5.0); TOTAL BILIRUBIN 0.3 mg/dL (<0.1-1.0); TOTAL PROTEIN 4.5 g/dL (6.4-8.2)
[2017-10-17 05:45] LABS: ABSOLUTE LYMPHOCYTES 1.1 thou/uL (0.8-5.3); ABSOLUTE MONOCYTES 0.8 thou/uL (0.0-1.2); ABSOLUTE NEUTROPHILS 7.8 thou/uL (1.6-8.1); PLATELET ESTIMATE ADEQUATE
[2017-10-17 05:46] LABS: ANISOCYTOSIS 1+; HYPOCHROMASIA Occasional; POIKILOCYTOSIS 1+
[2017-10-17 07:56] VITALS: BP 158/44
[2017-10-17 16:46] VITALS: BP 140/55
[2017-10-17 19:45] VITALS: BP 88/46
[2017-10-18 07:32] VITALS: BP 89/61
[2017-10-18 21:01] VITALS: BP 115/47
[2017-10-19 07:50] VITALS: BP 138/55
[2017-10-19 20:57] VITALS: BP 116/39
[2017-10-20 05:52] LABS: HEMATOCRIT 29.2 % (37.0-47.0); HEMOGLOBIN 9.6 gm/dL (12.0-15.0); MCH 31.4 pg (26.0-34.0); MCHC 32.7 g/dL (28.0-37.0); MCV 95.9 fL (80.0-100.0); MPV 8.4 fl. (7.2-11.1); RBC 3.05 mil/uL (4.20-5.00); RDW-CV 17.5 % (10.5-14.5); WBC 9.8 thou/uL (4.0-11.0)
[2017-10-20 06:14] LABS: POTASSIUM 4.1 mmol/L (3.5-5.1)
[2017-10-20 08:21] VITALS: BP 97/62
[2017-10-20 19:50] VITALS: BP 128/60
[2017-10-21 08:34] VITALS: BP 133/44
[2017-10-21 17:30] VITALS: BP 126/55
[2017-10-21 20:00] VITALS: BP 111/45
[2017-10-22 07:56] VITALS: BP 149/59
[2017-10-22 20:01] VITALS: BP 101/45
[2017-10-23 07:30] VITALS: BP 95/44
[2017-10-23 20:12] VITALS: BP 109/48
[2017-10-24 05:00] LABS: HEMATOCRIT 29.4 % (37.0-47.0); HEMOGLOBIN 9.7 gm/dL (12.0-15.0); MCH 31.4 pg (26.0-34.0); MCHC 32.9 g/dL (28.0-37.0); MCV 95.5 fL (80.0-100.0); MPV 8.6 fl. (7.2-11.1); RBC 3.07 mil/uL (4.20-5.00); WBC 9.1 thou/uL (4.0-11.0)
[2017-10-24 05:35] LABS: CALCIUM 8.4 mg/dL (8.5-10.1); CREATININE 2.6 mg/dL (0.6-1.3); MAGNESIUM 2.2 mg/dL (1.8-2.4); POTASSIUM 3.8 mmol/L (3.5-5.1)
[2017-10-24 07:30] VITALS: BP 122/51
[2017-10-24 17:15] VITALS: BP 87/57
[2017-10-24 20:09] VITALS: BP 100/49
[2017-10-25 07:55] VITALS: BP 95/53
[2017-10-25 09:08] VITALS: BP 112/51
[2017-10-25 17:06] VITALS: BP 99/57
[2017-10-25 20:28] VITALS: BP 77/43
[2017-10-25 22:38] VITALS: BP 102/45
[2017-10-26 04:36] LABS: CALCIUM 8.8 mg/dL (8.5-10.1); CREATININE 2.4 mg/dL (0.6-1.3); POTASSIUM 4.5 mmol/L (3.5-5.1)
[2017-10-26 08:53] VITALS: BP 131/54
[2017-10-26] MEDS ORDERED: TESSALON PERLE100 MG PO (13:13)
[2017-10-26 13:30] VITALS: BP 131/54
[2017-10-26] MEDS ORDERED: CARVEDILOL3.125 MG PO (13:57)
[2017-10-26] MEDS ORDERED: LASIX 40 MG TAB40 M2 PO (13:58)
[2017-10-26] MEDS ORDERED: ANUSOL-HC25 MG RECTAL (14:00)
[2017-10-26] MEDS ORDERED: MYRBETRIQ25 MG PO (14:02)
[2017-10-26] MEDS ORDERED: PREDNISONE 10 M10 MG PO (14:05)
[2017-10-26 14:06] VITALS: BP 131/54
[2017-10-26 14:12] VITALS: BP 131/54
[2017-10-26] MEDS ORDERED: LEVEMIR100 UNIT/1 SUBQ (14:40)
--- NOTE | 2017-11-16 13:45 | PLAN ---
[address] [address] REHAB UNIT PLAN OF CARE Name: SCOTTY SANTAMARIA Room: [address]#: [id number] Admission: 10/11/17 Attend Phys: Leigh Shultz DO Discharge: 10/26/17 Date of : 38 Report #: [id number] THIS REPORT FOR: //name// CC: Danny Shultz HISTORY OF PRESENT ILLNESS: This is a 77-year-old female admitted to inpatient rehabilitation to facilitate safe discharge home, status post acute hospitalization for significant pulmonary debility and complicated medical stay with needs in physical and occupational therapy as well as speech and language pathology. Previous level of function was independent with activities of daily living. Current level of function is moderate to maximum assistance of 1-2 depending on therapy, activity and time of day. She is currently on a low endurance protocol due to her significant debility. Estimated length of stay is 16-18 days with discharge disposition to the home setting. REHABILITATION PROGNOSIS: Fair. MEDICAL PROGNOSIS: Fair. Physical therapy will see the patient 60-90 minutes per day, 5 days per week, working on upper and lower body strength, balance, coordination. Occupational therapy will see the patient 60-90 minutes per day, 5 days per week, working on upper and lower body strength, balance, coordination, navigation, bathing, dressing, and toileting. Speech and language pathology will work with the patient on cognitive impairment, memory and interaction. This is an overall plan of care, might change from time to time. We will team weekly and make changes to plan of care as needed. <ELECTRONICALLY SIGNED> By: Leigh Shultz DO 11/16/17 1345 1229 [id number] Shlutz DO /nt
--- NOTE | 2017-11-16 13:45 | H ---
[address] [address] HISTORY AND PHYSICAL Name: SCOTTY SANTAMARIA Room: [address]#: [id number] Admission: 10/11/17 Attend Phys: Leigh Shultz, DO Discharge: 10/26/17 Date of : 36 Report #: [id number] THIS REPORT FOR: //name// CC: Danny Shultz DATE OF SERVICE: 10/11/2017 HISTORY OF PRESENT ILLNESS: This is a 77-year-old female who is admitted to inpatient rehabilitation to facilitate safe discharge to the home setting, status post significant complex hospitalization for pulmonary debility, acute on chronic respiratory failure with multiple medical comorbidities. She had been at [facility] for skilled rehab stay after a hospital stay at [place] for pneumonia, continued to decline, was found to be hypotensive and in atrial fibrillation with an abnormal troponin. She was admitted to the ICU, placed on pressors, multiple pulmonary infiltrates, went into further respiratory failure, was on IV antibiotics, followed by Infectious Disease, placed on BiPAP. Once stable from there is now currently on 2 liters of oxygen, which is new for her. Her previous level of function was independent with activities of daily living. Her current level of function is minimum to maximum assistance of 1-2 depending on therapy, activity and time of day. She does have needs in physical and occupational therapy. She did have a Redmond placed. That has recently been removed. She does have mild impairment of comprehension, expression, social interaction, problem solving and memory, thus requiring therapies in all 3 disciplines. She does live at home with her who is available to help her upon discharge. Estimated length of stay is 16-18 days with discharge disposition likely to the home setting. PAST MEDICAL HISTORY: Hypertension, hyperlipidemia, diabetes with a random glucose of 226, COPD, currently now on oxygen, CHF, osteoarthritis, coronary artery disease, hypothyroid, asthma, history of TIA, history of stroke, history of bilateral breast cancer, recent history of pneumonia on IV antibiotics, atrial fibrillation, sepsis, recent urinary tract infection, multiple falls. PAST SURGICAL HISTORY: Cardiac stents x 2, appendectomy, cholecystectomy, hemorrhoidectomy, bilateral breast lump removal, partial hysterectomy and partial tongue removal. ALLERGIES: PENICILLIN. SOCIAL HISTORY: Former smoker. No current tobacco, alcohol or illicit drug use. FAMILY HISTORY: Diabetes and heart disease. REVIEW OF SYSTEMS: She does have some ongoing [place] [address] HISTORY AND PHYSICAL Name: SCOTTY SANTAMARIA Room: [address]#: [id number] Admission: 10/11/17 Attend Phys: Leigh Shultz, Discharge: 10/26/17 Date of : 36 Report #: [id number] being treated with citalopram. Otherwise, 14-point review of systems is done and is negative except as mentioned in HPI, specifically no fever, chest pain, shortness of breath, abdominal pain, distention, change in bowel or change in bladder. PHYSICAL EXAMINATION: GENERAL: Sitting up in the chair, no family present at the bedside during this examination. Alert, oriented, no apparent distress. VITAL SIGNS: Reviewed and are stable. HEENT: Head: Atraumatic, normocephalic. Pupils equal, round, reactive. ABDOMEN: Soft, nontender, nondistended. NEUROLOGIC: Cranial nerves 2-12 are grossly intact. No focal neuro deficits, 5/5 strength in bilateral upper and lower extremities. SKIN: Warm and dry. No rashes or lesions noted. ASSESSMENT: 1. Significant debility post-acute hospitalization with pulmonary debility, acute on chronic respiratory failure and recent bilateral pneumonia on IV antibiotics. 2. Multiple medical comorbidities. 3. Debility with alterations in activities of daily living, requiring all 3 disciplines of care. PLAN: 1. Admission to inpatient rehabilitation. 2. PT, OT, speech, language, case management, nursing and HIMS to make evaluations and recommendations. 3. PT, OT, speech, language, case management with plan of care pending and will team her weekly. 4. Medication reconciliation has been completed. <ELECTRONICALLY SIGNED> By: Leigh Shultz DO 11/16/17 1345 0553 0630Leigh Shultz DO /nt
--- NOTE | 2017-12-06 14:42 | D ---
[address] [address] DISCHARGE SUMMARY Name: SCOTTY SANTAMARIA Room: [address] IN .R.#: [id number] Admission: 10/11/17 Attend Phys: Leigh Shultz DO Discharge: 10/26/17 Date of : 38 Report #: [id number] THIS REPORT FOR: //name// CC: Danny Shultz DATE OF SERVICE: 10/26/2017 DISCHARGE DIAGNOSES: Pulmonary debility, acute on chronic respiratory failure. DISCHARGE DISPOSITION: To skilled level of care for continued subacute rehabilitation with PT, OT and speech and language pathology due to family being unable to care for the patient at this level of care. The patient did progress in therapies with physical and occupational therapy as well as speech and language pathology, but did have a level of plateau, at that time was not able to be cared for by her son and . She was discharged to a skilled level of care for rehabilitation, full code. REHABILITATION PROGNOSIS: Fair evaluation and treatment for physical and occupational therapy as well as speech and language pathology. DIET: Heart healthy diet. FOLLOWUP: With primary care physician within 1 week of discharge. MEDICATIONS: Reviewed and reconciled by myself and are available in the MAR. DISCHARGE PHYSICAL EXAMINATION: GENERAL: Alert, oriented, in no apparent distress. VITAL SIGNS: Reviewed and are stable. HEENT: Head atraumatic, normocephalic. Pupils equal, round, reactive. ABDOMEN: Soft, nontender, nondistended. NEUROLOGIC: Cranial nerves 2-12 are grossly intact with no focal neuro deficits. <ELECTRONICALLY SIGNED> By: Leigh Shultz DO 12/06/17 1442 1323 1339Leigh Shultz DO /nt
== END 2017-10-26 15:00 | DRG 682 ==
LOC: M.REH 16:24
PROVIDERS: Family Medicine; Internal Medicine; ADMIT Physical Medicine & Rehabilitation
DX: N17.0 Acute kidney failure with tubular necrosis (principal); J18.9 Pneumonia, unspecified organism; I50.33 Acute on chronic diastolic (congestive) heart failure; J96.20 Acute and chronic respiratory failure, unspecified whether with hypoxia or hypercapnia; R04.2 Hemoptysis; I13.0 Hypertensive heart and chronic kidney disease with heart failure and stage 1 through stage 4 chronic kidney disease, or unspecified chronic kidney disease; E46 Unspecified protein-calorie malnutrition; J44.0 Chronic obstructive pulmonary disease with (acute) lower respiratory infection; T38.0X5A Adverse effect of glucocorticoids and synthetic analogues, initial encounter; N18.9 Chronic kidney disease, unspecified; E11.65 Type 2 diabetes mellitus with hyperglycemia; D64.9 Anemia, unspecified; F41.9 Anxiety disorder, unspecified; E11.22 Type 2 diabetes mellitus with diabetic chronic kidney disease; I27.20 Pulmonary hypertension, unspecified; I25.10 Atherosclerotic heart disease of native coronary artery without angina pectoris; R53.81 Other malaise; I48.91 Unspecified atrial fibrillation; Z86.73 Personal history of transient ischemic attack (TIA), and cerebral infarction without residual deficits; Z68.25 Body mass index [BMI] 25.0-25.9, adult; Y92.89 Other specified places as the place of occurrence of the external cause; Z79.51 Long term (current) use of inhaled steroids; Z79.899 Other long term (current) drug therapy; Z79.82 Long term (current) use of aspirin; Z88.0 Allergy status to penicillin; Z87.891 Personal history of nicotine dependence; Z83.3 Family history of diabetes mellitus; Z82.49 Family history of ischemic heart disease and other diseases of the circulatory system; Z95.5 Presence of coronary angioplasty implant and graft; Z90.49 Acquired absence of other specified parts of digestive tract; Z90.710 Acquired absence of both cervix and uterus; Z68.21 Body mass index [BMI] 21.0-21.9, adult

== ENCOUNTER 2017-11-23 22:34 | Emergency (ER) | payer MEDICARE, BC ==
[~2017-11-23] VITALS: Ht 162.6 cm; Wt 62.6 kg
[~2017-11-23 22:34] MED LIST changes: +ANUSOL-HC25 MG RECTAL; +LEVEMIR100 UNIT/1 SUBQ; +MYRBETRIQ25 MG PO
[2017-11-23] MEDS ORDERED: ALBUTEROL2.5 MG/31 INH (22:49)
[2017-11-23] MEDS ORDERED: REFRESH LIQUIGE15 ML OPHTHALMIC (23:02)
[2017-11-23] MEDS ORDERED: MUCINEX600 MG PO (23:03)
[2017-11-23 23:46] LABS: ABSOLUTE BASOPHILS 0.1 thou/uL (0.0-0.2); ABSOLUTE EOSINOPHILS 0.3 thou/uL (0.0-0.7); ABSOLUTE LYMPHOCYTES 3.2 thou/uL (0.8-5.3); ABSOLUTE MONOCYTES 1.3 thou/uL (0.0-1.2); ABSOLUTE NEUTROPHILS 3.6 thou/uL (1.6-8.1); BASOPHILS 1.2 %; EOSINOPHILS 3.6 %; HEMATOCRIT 29.8 % (37.0-47.0); HEMOGLOBIN 9.9 gm/dL (12.0-15.0); LYMPHOCYTES 37.7 %; MCHC 33.2 g/dL (28.0-37.0); MCV 93.5 fL (80.0-100.0); MONOCYTES 15.6 %; MPV 6.6 fl. (7.2-11.1); NUCLEATED RBCS 0 /100WBC; PLATELET COUNT* 245 thou/uL (150-400); POLYS 41.9 %; RBC 3.19 mil/uL (4.20-5.00); RDW-CV 15.4 % (10.5-14.5); WBC 8.5 thou/uL (4.0-11.0)
[2017-11-23 23:54] LABS: CALCIUM 8.8 mg/dL (8.5-10.1); CREATININE 2.5 mg/dL (0.6-1.3); POTASSIUM 3.3 mmol/L (3.5-5.1)
[2017-11-23 23:59] LABS: ALBUMIN 2.6 g/dL (3.4-5.0); TOTAL BILIRUBIN 0.3 mg/dL (<0.1-1.0); TOTAL PROTEIN 5.6 g/dL (6.4-8.2)
[2017-11-24 01:34] VITALS: BP 143/80
== END 2017-11-24 02:05 | disposition home or self-care (01) ==
LOC: M.ERS 22:34
PROVIDERS: Emergency Medicine
DX: M25.512 Pain in left shoulder (principal); S00.90XA Unspecified superficial injury of unspecified part of head, initial encounter; J45.909 Unspecified asthma, uncomplicated; E78.5 Hyperlipidemia, unspecified; M19.90 Unspecified osteoarthritis, unspecified site; E03.9 Hypothyroidism, unspecified; J44.9 Chronic obstructive pulmonary disease, unspecified; E11.9 Type 2 diabetes mellitus without complications; I50.9 Heart failure, unspecified; I11.0 Hypertensive heart disease with heart failure; I48.91 Unspecified atrial fibrillation; Z79.4 Long term (current) use of insulin; Z88.0 Allergy status to penicillin; Z79.84 Long term (current) use of oral hypoglycemic drugs; Z85.810 Personal history of malignant neoplasm of tongue; Z86.73 Personal history of transient ischemic attack (TIA), and cerebral infarction without residual deficits; W18.31XA Fall on same level due to stepping on an object, initial encounter; Y93.89 Activity, other specified; Y92.89 Other specified places as the place of occurrence of the external cause; Y99.8 Other external cause status

== ENCOUNTER 2017-12-25 12:36 | Emergency (ER) | payer MEDICARE, BC ==
[~2017-12-25] VITALS: Ht 162.6 cm; Wt 59.9 kg
[~2017-12-25 12:36] MED LIST changes: +ALBUTEROL2.5 MG/31 INH; +MUCINEX600 MG PO; +REFRESH LIQUIGE15 ML OPHTHALMIC
[2017-12-25] MEDS ORDERED: HYDROCORTISONE30 G9 RECTAL (12:56)
[2017-12-25] MEDS ORDERED: TESSALON PERLE100 MG PO (12:57)
[2017-12-25] MEDS ORDERED: MUCINEX600 MG PO (12:57)
[2017-12-25] MEDS ORDERED: BROVANA15 MCG/2 M INH (13:01)
[2017-12-25] MEDS ORDERED: NORCO 5-325 TA1 EAC1 PO (13:51)
[2017-12-25 14:21] VITALS: BP 138/70
== END 2017-12-25 14:23 | disposition home or self-care (01) ==
LOC: M.ERS 12:36
DX: S92.421A Displaced fracture of distal phalanx of right great toe, initial encounter for closed fracture (principal); S93.402A Sprain of unspecified ligament of left ankle, initial encounter; E03.9 Hypothyroidism, unspecified; E78.5 Hyperlipidemia, unspecified; E11.9 Type 2 diabetes mellitus without complications; J44.9 Chronic obstructive pulmonary disease, unspecified; M19.90 Unspecified osteoarthritis, unspecified site; I48.91 Unspecified atrial fibrillation; I11.0 Hypertensive heart disease with heart failure; I50.9 Heart failure, unspecified; Z95.5 Presence of coronary angioplasty implant and graft; Z85.3 Personal history of malignant neoplasm of breast; Z90.711 Acquired absence of uterus with remaining cervical stump; Z86.73 Personal history of transient ischemic attack (TIA), and cerebral infarction without residual deficits; Z79.4 Long term (current) use of insulin; Z88.0 Allergy status to penicillin; W50.2XXA Accidental twist by another person, initial encounter; Y93.89 Activity, other specified; Y92.89 Other specified places as the place of occurrence of the external cause; Y99.8 Other external cause status

== ENCOUNTER 2018-11-04 20:35 | Inpatient (IN) | payer MEDICARE, BC, MEDICAID ==
[~2018-11-04] VITALS: Ht 160 cm; Wt 65.8 kg
[~2018-11-04 20:35] MED LIST changes: +HYDROCORTISONE30 G9 RECTAL; +NORCO 5-325 TA1 EAC1 PO
[2018-11-04 20:37] VITALS: BP 168/93
[2018-11-04] MEDS ORDERED: COLACE100 MG PO (20:53)
[2018-11-04] MEDS ORDERED: REFRESH LIQUIGE15 ML (20:55)
[2018-11-04] MEDS ORDERED: MELATONIN3 MG PO (20:59)
[2018-11-04] MEDS ORDERED: SENNA LAX8.6 MG PO (21:01)
[2018-11-04] MEDS ORDERED: SENIOR TABS1 EACH (21:04)
[2018-11-04] MEDS ORDERED: ELIQUIS2.5 MG PO (21:06)
[2018-11-04 21:10] LABS: BE -5.1 mmol/L (-2 to +3)
[2018-11-04 21:13] LABS: ABSOLUTE MONOCYTES 0.4 thou/uL (0.0-1.2); ABSOLUTE NEUTROPHILS 7.1 thou/uL (1.6-8.1); BASOPHILS 0.4 %; EOSINOPHILS 0.2 %; HEMATOCRIT 39.5 % (37.0-47.0); HEMOGLOBIN 12.8 gm/dL (12.0-15.0); LYMPHOCYTES 11.7 %; MCH 30.7 pg (26.0-34.0); MCHC 32.3 g/dL (28.0-37.0); MCV 95.3 fL (80.0-100.0); MONOCYTES 4.7 %; MPV 7.7 fl. (7.2-11.1); NUCLEATED RBCS 0 /100WBC; PLATELET COUNT* 244 thou/uL (150-400); RBC 4.15 mil/uL (4.20-5.00); RDW-CV 15.2 % (10.5-14.5); WBC 8.5 thou/uL (4.0-11.0)
[2018-11-04 21:13] LABS: pH 7.258 (7.340-7.450)
[2018-11-04 21:14] LABS: PCO2 51.2 mmHg (35.0-45.0); PO2 200.9 mmHg (75.0-100.0)
[2018-11-04] MEDS ORDERED: PROMETHAZI6.25 MG/5 PO (21:14)
[2018-11-04] MEDS ORDERED: PREDNISONE 10 M10 MG PO (21:16)
[2018-11-04] MEDS ORDERED: DEPAKOTE500 MG PO (21:19)
[2018-11-04] MEDS ORDERED: LEVAQUIN 500 M500 M2 PO (21:21)
[2018-11-04] MEDS ORDERED: LIDODERM1 EACH TOP (21:24)
[2018-11-04 21:25] LABS: CALCIUM 8.7 mg/dL (8.5-10.1); CREATININE 1.8 mg/dL (0.6-1.3); POTASSIUM 5.6 mmol/L (3.5-5.1)
[2018-11-04 21:37] LABS: ALBUMIN 2.9 g/dL (3.4-5.0); MAGNESIUM 1.9 mg/dL (1.8-2.4); TOTAL BILIRUBIN 0.2 mg/dL (<0.1-1.0); TOTAL PROTEIN 6.4 g/dL (6.4-8.2)
[2018-11-04 22:26] LABS: TROPONIN-I LEVEL <0.06 ng/mL (<0.06)
[2018-11-04 22:51] LABS: URINE BILIRUBIN NEGATIVE (Negative); URINE BLOOD NEGATIVE (Negative); URINE CLARITY CLEAR; URINE COLOR YELLOW; URINE GLUCOSE-RANDOM NEGATIVE (Negative); URINE KETONES NEGATIVE (Negative); URINE LEUKOCYTES-REFLEX TRACE (Negative); URINE NITRITE-REFLEX NEGATIVE (Negative); URINE PROTEIN NEGATIVE (Negative); URINE UROBILINOGEN 0.2 E.U./dl (0.2-1.0)
[2018-11-04 22:58] LABS: SQUAMOUS 0-3 Few /LPF (0-3); WBC CLUMPS Moderate (None Seen)
[2018-11-04 22:59] LABS: BACTERIA-REFLEX >30 Many /HPF (None Seen); CASTS None Seen /LPF (None Seen); CRYSTALS None Seen /LPF (None Seen); MUCUS 0-3 Light strn/LPF (None Seen); URINE RBC 3-10 Few /HPF (0-2); URINE WBC-REFLEX >25 Many /HPF (0-5)
[2018-11-04 23:37] VITALS: BP 109/62
[2018-11-04 23:50] VITALS: BP 111/63
[2018-11-05 04:00] VITALS: BP 144/58
[2018-11-05 05:21] LABS: BE -5.9 mmol/L (-2 to +3); PCO2 36.9 mmHg (35.0-45.0); pH 7.336 (7.340-7.450)
[2018-11-05 05:25] LABS: PO2 171.3 mmHg (75.0-100.0)
[2018-11-05 07:45] VITALS: BP 123/85
[2018-11-05 12:00] VITALS: BP 111/72
--- NOTE | 2018-11-05 12:26 | EKG ---
[place] [address] ELECTROCARDIOGRAM REPORT Name: SCOTTY SANTAMARIA Room: [address] ADM IN [facility].#: [id number] Admission: 11/04/18 Attend Phys: Mart Rosario, Discharge: Date of : 38 Report #: [id number] THIS REPORT FOR: //name// [facility] ED Test Date: 2018-11-04 Test Time: 20:50:11 Pat Name: SCOTTY SANTAMARIA Department: Room: [address] Gender: F Software Application Tester: AIDA : 1940 Requested By: Karen Fitch Order Number: [id number] Reading MD: Benny Baldwin Measurements Intervals [place] Rate: 99 P: 70 OR: 171 QRS: -23 QRSD: 89 T: 109 QT: 332 QTc: 426 Interpretive Statements Sinus rhythm Borderline left axis deviation Abnormal T, consider ischemia, lateral leads ST elevation, consider inferior injury Compared to ECG 10/01/2017 19:34:59 T-wave abnormality now present Possible ischemia now present ST (T wave) deviation now present Myocardial infarct finding now present Prolonged QT interval no longer present Electronically Signed On 11-05-2018 12:25:57 PAYROLL ASSOCIATE by Benny Baldwin [email or web address] <ELECTRONICALLY SIGNED> By: Benny Baldwin MD, [facility] 11/05/181224 49 49 Benny Baldwin MD, [facility] /EPI
[2018-11-05 16:00] VITALS: BP 140/63
[2018-11-05 20:00] VITALS: BP 124/73
[2018-11-06 00:54] VITALS: BP 135/74
[2018-11-06 04:39] LABS: HEMATOCRIT 28.5 % (37.0-47.0); MCH 31.6 pg (26.0-34.0); MCHC 32.8 g/dL (28.0-37.0); MCV 96.3 fL (80.0-100.0); MPV 7.7 fl. (7.2-11.1); RBC 2.96 mil/uL (4.20-5.00); RDW-CV 14.8 % (10.5-14.5); WBC 7.8 thou/uL (4.0-11.0)
[2018-11-06 04:50] VITALS: BP 101/36
[2018-11-06 04:58] LABS: ALBUMIN 2.1 g/dL (3.4-5.0); CALCIUM 8.1 mg/dL (8.5-10.1); CREATININE 1.8 mg/dL (0.6-1.3); POTASSIUM 5.1 mmol/L (3.5-5.1); TOTAL BILIRUBIN 0.3 mg/dL (<0.1-1.0); TOTAL PROTEIN 4.7 g/dL (6.4-8.2)
[2018-11-06 05:02] LABS: HEMOGLOBIN 9.4 gm/dL (12.0-15.0)
[2018-11-06 06:22] LABS: BE -7.1 mmol/L (-2 to +3); PCO2 47.8 mmHg (35.0-45.0)
[2018-11-06 06:25] LABS: PO2 228.4 mmHg (75.0-100.0)
[2018-11-06 07:22] VITALS: BP 91/61
[2018-11-06] MEDS ORDERED: ALPRAZOLAM 0.50.5 MG PO (10:27)
[2018-11-06] MEDS ORDERED: VENTOLIN HFA 1818 GM INH (10:29)
[2018-11-06 11:19] VITALS: BP 85/61
[2018-11-06 15:32] VITALS: BP 117/97
[2018-11-06 20:20] VITALS: BP 138/67
[2018-11-07] VITALS (8 sets, daily range): BP systolic 101–144; BP diastolic 48–84
[2018-11-07 09:49] LABS: CALCIUM 8.7 mg/dL (8.5-10.1); CREATININE 1.6 mg/dL (0.6-1.3); POTASSIUM 5.5 mmol/L (3.5-5.1)
[2018-11-07 09:57] LABS: HEMATOCRIT 28.2 % (37.0-47.0); HEMOGLOBIN 9.3 gm/dL (12.0-15.0); MCH 31.4 pg (26.0-34.0); MCHC 32.9 g/dL (28.0-37.0); MCV 95.5 fL (80.0-100.0); MPV 8.2 fl. (7.2-11.1); NUCLEATED RBCS 0 /100WBC; PLATELET COUNT* 157 thou/uL (150-400); RBC 2.95 mil/uL (4.20-5.00); RDW-CV 14.9 % (10.5-14.5); WBC 4.5 thou/uL (4.0-11.0)
[2018-11-07 10:01] LABS: BE -6.4 mmol/L (-2 to +3); PCO2 36.7 mmHg (35.0-45.0); PO2 111.4 mmHg (75.0-100.0); pH 7.329 (7.340-7.450)
[2018-11-07 10:52] LABS: ABSOLUTE LYMPHOCYTES 0.3 thou/uL (0.8-5.3); ABSOLUTE NEUTROPHILS 4.2 thou/uL (1.6-8.1)
[2018-11-07 10:53] LABS: GIANT PLATELETS RARE
[2018-11-07 10:58] LABS: PLATELET ESTIMATE ADEQUATE
[2018-11-07 11:00] LABS: HYPOCHROMASIA 1+; MICROCYTES 1+
[2018-11-07 23:04] LABS: HEMATOCRIT 36.4 % (37.0-47.0); MCH 30.3 pg (26.0-34.0); MCHC 31.7 g/dL (28.0-37.0); MCV 95.7 fL (80.0-100.0); MPV 8.1 fl. (7.2-11.1); RBC 3.81 mil/uL (4.20-5.00); RDW-CV 14.7 % (10.5-14.5); WBC 7.9 thou/uL (4.0-11.0)
[2018-11-07 23:14] LABS: ANION GAP 7 mmol/L (7-16); BUN 43 mg/dL (7-18); CALCIUM 9.6 mg/dL (8.5-10.1); CHLORIDE 106 mmol/L (98-107); CO2 23 mmol/L (21-32); CREATININE 2.1 mg/dL (0.6-1.3); GLUCOSE 320 mg/dL (70-99); POTASSIUM 5.8 mmol/L (3.5-5.1); SODIUM 136 mmol/L (136-145)
[2018-11-07 23:17] LABS: HEMOGLOBIN 11.5 gm/dL (12.0-15.0)
[2018-11-07 23:26] LABS: NT-PRO BRAIN NAT PEPTIDE 32492 pg/mL (<300); TROPONIN-I LEVEL <0.06 ng/mL (<0.06)
[2018-11-08] VITALS (7 sets, daily range): BP systolic 98–131; BP diastolic 52–70
[2018-11-08 10:48] LABS: ABSOLUTE LYMPHOCYTES 0.5 thou/uL (0.8-5.3); ABSOLUTE MONOCYTES 0.2 thou/uL (0.0-1.2); ABSOLUTE NEUTROPHILS 5.4 thou/uL (1.6-8.1); BASOPHILS 0.2 %; EOSINOPHILS 0.1 %; HEMATOCRIT 28.5 % (37.0-47.0); LYMPHOCYTES 8.3 %; MCH 31.4 pg (26.0-34.0); MCHC 33.3 g/dL (28.0-37.0); MCV 94.2 fL (80.0-100.0); MONOCYTES 3.2 %; NUCLEATED RBCS 0 /100WBC; PLATELET COUNT* 183 thou/uL (150-400); POLYS 88.2 %; RBC 3.02 mil/uL (4.20-5.00); RDW-CV 14.5 % (10.5-14.5); WBC 6.1 thou/uL (4.0-11.0)
[2018-11-08 10:49] LABS: HEMOGLOBIN 9.5 gm/dL (12.0-15.0)
[2018-11-08 10:56] LABS: CALCIUM 9.2 mg/dL (8.5-10.1); CREATININE 1.8 mg/dL (0.6-1.3)
[2018-11-08 10:57] LABS: POTASSIUM 4.4 mmol/L (3.5-5.1)
--- NOTE | 2018-11-08 13:07 | EKG ---
[place] [address] ELECTROCARDIOGRAM REPORT Name: SCOTTY SANTAMARIA Room: [address] ADM IN M.R.#: [id number] Admission: 11/04/18 Attend Phys: Mart Rosario, Discharge: Date of : 38 Report #: [id number] THIS REPORT FOR: //name// [facility] Test Date: 2018-11-07 Test Time: 22:48:56 Pat Name: SCOTTY SANTAMARIA Department: Room: [address] Gender: F Speech Language Pathologist Assistant: SLJ : 1940 Requested By: Eliseo Ferrara Order Number: [id number] Severo MD: Landen Zamora Measurements Intervals [place] Rate: 139 P: -63 AR: 106 QRS: -30 QRSD: 113 T: 120 QT: 308 QTc: 469 Interpretive Statements Sinus or ectopic atrial tachycardia Borderline IVCD with LAD Repolarization abnormality, prob rate related Compared to ECG 11/04/2018 20:50:11 Early repolarization now present Sinus rhythm no longer present T-wave abnormality no longer present ST (T wave) deviation still present Electronically Signed On 11-08-2018 13:07:36 SUPERVISOR [employer] by Landen Zamora [email or web address] <ELECTRONICALLY SIGNED> By: Landen Zamora MD, FACC 11/08/18 1307 2248 2248 Landen Zamora MD, FAC /EPI
[2018-11-08 17:07] LABS: BE -1.8 mmol/L (-2 to +3); PCO2 39.8 mmHg (35.0-45.0); pH 7.381 (7.340-7.450)
[2018-11-09] VITALS (7 sets, daily range): BP systolic 108–122; BP diastolic 57–65
[2018-11-09 01:57] LABS: MAGNESIUM 1.8 mg/dL (1.8-2.4); POTASSIUM 4.2 mmol/L (3.5-5.1)
[2018-11-09 11:19] LABS: ABSOLUTE LYMPHOCYTES 0.3 thou/uL (0.8-5.3); ABSOLUTE MONOCYTES 0.2 thou/uL (0.0-1.2); ABSOLUTE NEUTROPHILS 6.6 thou/uL (1.6-8.1); BASOPHILS 0.2 %; HEMATOCRIT 28.1 % (37.0-47.0); HEMOGLOBIN 9.2 gm/dL (12.0-15.0); LYMPHOCYTES 4.6 %; MCH 30.9 pg (26.0-34.0); MCHC 32.7 g/dL (28.0-37.0); MCV 94.5 fL (80.0-100.0); MONOCYTES 2.2 %; MPV 8.3 fl. (7.2-11.1); NUCLEATED RBCS 0 /100WBC; PLATELET COUNT* 194 thou/uL (150-400); RBC 2.98 mil/uL (4.20-5.00); RDW-CV 14.9 % (10.5-14.5); WBC 7.1 thou/uL (4.0-11.0)
--- NOTE | 2018-11-09 15:23 | 2DMMODE ---
[place] [address] 2 D/M-MODE ECHOCARDIOGRAM Name: SCOTTY SANTAMARIA Room: [address] IN [facility]#: [id number] Admission: 11/04/18 Attend Phys: Mart Trinidad Discharge: 11/09/18 Date of : 36 Date of Service: 11/09/18 1522 Report #: [id number] THIS REPORT FOR: //name// APPROVED REPORT Study performed: 11/09/2018 10:21:22 EXAM: Comprehensive 2D, Doppler, and color-flow Echocardiogram Patient Location: In-Patient Room #: [facility] Status: routine BSA: 1.60 HR: 70 bpm BP: 112/65 mmHg Rhythm: NSR Other Information Study Quality: Good Indications Dyspnea 2D Dimensions IVSd: 14.63 (7-11mm) LVOT Diam: 22.77 (18-24mm) LVDd: 49.20 mm PWd: 11.79 (7-11mm) Ascending Ao: 31.07 (22-36mm) LVDs: 37.76 (25-40mm) Volumes Left Atrial Volume (Systole) LA ESV Index: 42.70 mL/m2 Aortic Valve AoV Peak Edmond.: 1.29 m/s AO Peak Gr.: 6.67 mmHg LVOT Max P.08 mmHg AO Mean Gr.: 3.84 mmHg LVOT Mean P.24 mmHg LVOT Max V: 1.13 m/s AO V2 VTI: 26.36 cm LVOT Mean V: 0.67 m/s MARTHA (VTI): 3.89 cm2 LVOT V1 VTI: 25.14 cm Mitral Valve E/A Ratio: 0.85 MV Decel. Time: 224.83 ms MV E Max Edmond.: 1.12 m/s MV PHT: 65.20 [place] [address] 2 D/M-MODE ECHOCARDIOGRAM Name: SCOTTY SANTAMARIA Room: [address]#: [id number] Admission: 11/04/18 Attend Phys: Mart Trinidad Discharge: 11/09/18 Date of : 36 Date of Service: 11/09/18 1522 Report #: [id number] MVA (PHT): 3.37 cm2 TDI E/Lateral E': 10.18 E/Medial E': 16.00 Medial E' Edmond.: 0.07 m/s Lateral E' Edmond.: 0.11 m/s Pulmonary Valve PV Peak Edmond.: 1.08 m/s PV Peak Gr.: 4.65 mmHg Tricuspid Valve RAP Estimate: 10.00 mmHg TR Peak Gr.: 31.01 mmHg RVSP: 41.00 mmHg PA Pressure: 41.00 mmHg Left Ventricle The left ventricle is normal size. There is normal LV segmental wall motion. Mild concentric left ventricular hypertrophy. Left ventricular systolic function is normal. LVEF is 50-55%. Grade I - abnormal relaxation pattern. Right Ventricle The right ventricle is normal size. The right ventricular systolic function is normal. Atria Left atrium is mild to moderately dilated. Right atrium is mildly dilated. Aortic Valve The aortic valve is normal in structure. Mild aortic regurgitation. There is no aortic valvular stenosis. Mitral Valve There is mitral annular calcification. Moderate mitral regurgitation. No evidence of mitral valve stenosis. Tricuspid Valve The tricuspid valve is normal in structure. Mild tricuspid regurgitation. Moderate pulmonary hypertension. Pulmonic Valve The pulmonary valve is normal in structure. Trace pulmonic [place] [address] 2 D/M-MODE ECHOCARDIOGRAM Name: SCOTTY SANTAMARIA Room: [address]#: [id number] Admission: 11/04/18 Attend Phys: Mart Trinidad Discharge: 11/09/18 Date of : 36 Date of Service: 11/09/18 1522 Report #: [id number] The aortic root is normal in size. IVC is dilated. Pericardium There is no pericardial effusion. <Conclusion> The left ventricle is normal size. Mild concentric left ventricular hypertrophy. LVEF is 50-55%. Grade I - abnormal relaxation pattern. Left atrium is mild to moderately dilated. Right atrium is mildly dilated. Mild aortic regurgitation. Moderate mitral regurgitation. Mild tricuspid regurgitation. Moderate pulmonary hypertension. IVC is dilated. <ELECTRONICALLY SIGNED> By: Reilly Fisher MD, FACC 11/09/18 1522 1522 152 Reilly Fisher MD, FACC /INF
--- NOTE | 2018-11-14 09:47 | EKG ---
[place] [address] ELECTROCARDIOGRAM REPORT Name: SCOTTY SANTAMARIA Room: [address] IN [facility]#: [id number] Admission: 11/04/18 Attend Phys: Mart Rosario, Discharge: 11/09/18 Date of : 38 Report #: [id number] THIS REPORT FOR: //name// [facility] ED Test Date: 2018-11-13 Test Time: 19:29:38 Pat Name: SCOTTY SANTAMARIA Department: Room: [facility] Gender: F Sat Act Instructor: : 1940 Requested By: Ludmila Gonzalez Order Number: [id number] MD: Benny Baldwin Measurements Intervals [place] Rate: 88 P: 10 WI: 156 QRS: -28 QRSD: 117 T: -8 QT: 342 QTc: 414 Interpretive Statements Sinus rhythm Ventricular premature complex Probable left ventricular hypertrophy Compared to ECG 11/07/2018 22:48:56 Ventricular premature complex(es) now present Early repolarization no longer present Electronically Signed On 11-14-2018 9:47:08 FIRE SPRINKLER INSPECTOR by Benny Baldwin [email or web address] <ELECTRONICALLY SIGNED> By: Benny Baldwin MD, FAC 11/14/1847 28 28 Benny Baldwin MD, FAC /EPI
== END 2018-11-09 14:35 | DRG 177 ==
LOC: M.ERS 20:35 → M.3W 22:04 → M.TBA-ER 22:04 → M.2W 22:04 → M.3W 11-06 16:47
PROVIDERS: Internal Medicine; Personal Emergency Response Attendant; ADMIT Family Medicine
PROC: 5A09357 Assistance with Respiratory Ventilation, Less than 24 Consecutive Hours, Continuous Positive Airway Pressure (ICD-10-PCS; principal; 2018-11-04)
PROC: 5A09357 Assistance with Respiratory Ventilation, Less than 24 Consecutive Hours, Continuous Positive Airway Pressure (ICD-10-PCS; 2018-11-05)
PROC: 5A09357 Assistance with Respiratory Ventilation, Less than 24 Consecutive Hours, Continuous Positive Airway Pressure (ICD-10-PCS; 2018-11-06)
PROC: 5A09357 Assistance with Respiratory Ventilation, Less than 24 Consecutive Hours, Continuous Positive Airway Pressure (ICD-10-PCS; 2018-11-08)
PROC: 5A09357 Assistance with Respiratory Ventilation, Less than 24 Consecutive Hours, Continuous Positive Airway Pressure (ICD-10-PCS; 2018-11-09)
DX: J15.6 Pneumonia due to other Gram-negative bacteria (principal); J96.01 Acute respiratory failure with hypoxia; J96.02 Acute respiratory failure with hypercapnia; R65.10 Systemic inflammatory response syndrome (SIRS) of non-infectious origin without acute organ dysfunction; J44.1 Chronic obstructive pulmonary disease with (acute) exacerbation; I13.0 Hypertensive heart and chronic kidney disease with heart failure and stage 1 through stage 4 chronic kidney disease, or unspecified chronic kidney disease; J45.909 Unspecified asthma, uncomplicated; E03.9 Hypothyroidism, unspecified; E78.5 Hyperlipidemia, unspecified; I50.9 Heart failure, unspecified; F17.210 Nicotine dependence, cigarettes, uncomplicated; M19.90 Unspecified osteoarthritis, unspecified site; I25.10 Atherosclerotic heart disease of native coronary artery without angina pectoris; I48.0 Paroxysmal atrial fibrillation; N18.9 Chronic kidney disease, unspecified; E11.22 Type 2 diabetes mellitus with diabetic chronic kidney disease; Z86.73 Personal history of transient ischemic attack (TIA), and cerebral infarction without residual deficits; Z90.49 Acquired absence of other specified parts of digestive tract; Z90.711 Acquired absence of uterus with remaining cervical stump; Z98.42 Cataract extraction status, left eye; Z98.41 Cataract extraction status, right eye; Z95.5 Presence of coronary angioplasty implant and graft; Z85.3 Personal history of malignant neoplasm of breast; Z88.0 Allergy status to penicillin; Z79.82 Long term (current) use of aspirin; Z79.899 Other long term (current) drug therapy

== ENCOUNTER 2018-12-31 20:20 | Emergency (ER) | payer MEDICARE, BC, MEDICAID ==
[~2018-12-31] VITALS: Ht 160 cm; Wt 58.1 kg
[~2018-12-31 20:20] MED LIST changes: +ALPRAZOLAM 0.50.5 MG PO; +DEPAKOTE500 MG PO; +DOXYCYCLINE 10100 M2 PO; +LASIX 20 MG TAB20 MG PO; +LEVAQUIN 500 M500 M2 PO; +LIDODERM1 EACH TOP; +MELATONIN3 MG PO; +PROMETHAZI6.25 MG/5 PO; +REFRESH LIQUIGE15 ML; +SENIOR TABS1 EACH; +SENNA LAX8.6 MG PO; +VENTOLIN HFA 1818 GM INH
[2018-12-31 20:22] VITALS: BP 109/76
[2018-12-31] MEDS ORDERED: GLUCOTROL5 MG PO (21:04)
[2018-12-31] MEDS ORDERED: REMERON30 MG PO (21:06)
[2018-12-31] MEDS ORDERED: SPIRIVA18 MCG INH (21:07)
[2018-12-31] MEDS ORDERED: SALONPAS PATCH1 EAC1 TOP (21:08)
== END 2018-12-31 23:15 | disposition home or self-care (01) ==
LOC: M.ERS 20:20
DX: R04.0 Epistaxis (principal); E03.9 Hypothyroidism, unspecified; E78.5 Hyperlipidemia, unspecified; I11.0 Hypertensive heart disease with heart failure; I50.9 Heart failure, unspecified; E11.9 Type 2 diabetes mellitus without complications; J44.9 Chronic obstructive pulmonary disease, unspecified; M19.90 Unspecified osteoarthritis, unspecified site; I48.91 Unspecified atrial fibrillation; Z95.5 Presence of coronary angioplasty implant and graft; Z86.73 Personal history of transient ischemic attack (TIA), and cerebral infarction without residual deficits; Z90.711 Acquired absence of uterus with remaining cervical stump; Z85.810 Personal history of malignant neoplasm of tongue; Z90.49 Acquired absence of other specified parts of digestive tract; Z79.4 Long term (current) use of insulin; Z88.0 Allergy status to penicillin; Z87.891 Personal history of nicotine dependence

== ENCOUNTER 2019-02-03 21:54 | Inpatient (IN) | payer MEDICARE, BC, MEDICAID ==
[~2019-02-03] VITALS: Ht 162.6 cm; Wt 70.8 kg
--- NOTE | ~2019-02-03 | CON ---
[address] [address] CONSULTATION Name: SCOTTY SANTAMARIA Room: [address] IN ..#: [id number] Admission: 02/03/19 Attend Phys: Camden Fitzpatrick MD Discharge: Date of : 38 Report #: [id number] THIS REPORT FOR: //name// CC: Gene Fitzpatrick DATE OF SERVICE: 02/04/2019 REQUESTING PHYSICIAN: Dr. Fitzpatrick. REASON FOR CONSULTATION: Cardiac arrest. HISTORY OF PRESENT ILLNESS: The patient is an 78-year-old woman, with multiple medical problems, who was living in a skilled facility, had been found unconscious by her son. She had a prolonged cardiac arrest, CPR with code blue requiring rounds of CPR as well as epinephrine for approximately 30 minutes, but she did ultimately regain her pulse. She was transferred to the Emergency Department and was intubated. Her presenting ECG showed initially apparently an ectopic atrial rhythm, but no dynamic ST-T wave abnormalities and her 12-lead ECG from the Emergency Room shows no dynamic ST-T wave abnormalities or cardiac pauses. She was hypotensive. Overnight, she was placed on code ice protocol and per this protocol, has been sedated, and neurologic status is currently not known. She did have a CT scan of the brain, which was unremarkable. The patient has a known history of numerous cardiac problems as well as chronic obstructive pulmonary disease, was hospitalized with respiratory failure earlier this past winter. All of this record was obtained from chart record as the patient's family is not available at this time. PAST MEDICAL HISTORY: Significant for coronary artery disease, status post remote PCI. She has a history of atrial fibrillation, chronic obstructive pulmonary disease, respiratory failure, chronic elevation of liver function test, hypothyroidism. PAST SURGICAL HISTORY: No recent surgeries. She has had prior PCI, cataract surgery. MEDICATIONS: Her reported home medications include albuterol, Pulmicort, iron, Celexa, baby aspirin, Synthroid 75 mcg daily, carvedilol 3.125 mg p.o. b.i.d., Atrovent, Eliquis 2.5 mg b.i.d., insulin, glipizide, hydrocortisone. ALLERGIES: She has no known allergies. SOCIAL HISTORY: She is a prior smoker and drinker. As above, [place] [address] CONSULTATION Name: HINASCOTTY Isabel Room: [address]#: [id number] Admission: 02/03/19 Attend Phys: Camden Fitzpatrick MD Discharge: Date of : 38 Report #: [id number] REVIEW OF SYSTEMS: Not able to be obtained. PHYSICAL EXAMINATION: VITAL SIGNS: Currently, her blood pressures are stable in the 120s-130s off of pressor agents. Transiently, she required IV Levophed. Currently, she is in a sinus rhythm with a heart rate of 77. GENERAL: She is sedated and intubated. HEENT: ET tube is secured to the patient. NECK: There is no jugular venous distention. CARDIOVASCULAR: Regular. I could not hear a murmur or rub. Heart tones are normal. LUNGS: Diminished breath sounds with expiratory wheezes. ABDOMEN: Soft, nontender. EXTREMITIES: Distal extremities are cool. NEUROLOGIC: There are no focal deficits. The patient is sedated. Electrocardiogram shows sinus rhythm, poor R-wave progression, mild nonspecific ST-T segment depression, there is a left anterior fascicular block. Cardiac troponin level is 0.13, 0.41 and 0.79 and then most recently 0.89. BNP is 9906. INR is 1.2. Hemoglobin is 10.3, white blood cell count is 23.8. Portable chest from this morning shows mild left infrahilar opacities suggesting atelectasis, minimal infiltrates, mild cardiomegaly. CT scan of the brain shows no evidence of intracranial hemorrhage or acute intracranial abnormality. IMPRESSION: 1. Status post cardiac arrest. This appeared to be an asystolic hypotensive event. She does not present with dynamic ST-T wave abnormalities or significant cardiac troponin elevations to think that this was unstable angina or occlusion of her previously placed LAD stent. Her LV function is not known. We will obtain an echocardiogram. She is currently on the code ice protocol, so we cannot assess her neurologic function. Presently, she is hemodynamically stable. She did require pressors transiently. She is not making urine. I think she would benefit from IV fluid. She did not have significant heart failure on her x-ray, although her BNP is elevated, but this is chronically elevated, I suspect. 2. Atrial fibrillation. She is currently in a sinus rhythm and had been on oral anticoagulation, but fortunately, there is no evidence of a cerebral hemorrhage. 3. Acute kidney failure. I would rehydrate her and continue to monitor blood pressures and treat with pressor agents and volume as necessary. 4. Anoxic brain injury. It is too early at this point in time to assess neurologic function. Currently, she is sedated by the code ice protocol. 5. Coronary artery disease. Her ECGs do not show dynamic ST-T wave abnormalities, but certainly, if she returns stable hemodynamics and neurologic [facility] [address] [address] CONSULTATION Name: SCOTTY SANTAMARIA Room: [address] IN [facility]#: [id number] Admission: 02/03/19 Attend Phys: Camden Fitzpatrick MD Discharge: Date of : 38 Report #: [id number] function, she could be considered for an evaluation with a cardiac catheterization depending on her functional capacity. By: [id number] Baldwin MD, FACC /nt
--- NOTE | ~2019-02-03 | EKG ---
[place] [address] ELECTROCARDIOGRAM REPORT Name: SCOTTY SANTAMARIA Room: [address] ADM IN .R.#: [id number] Admission: 02/03/19 Attend Phys: Camden Fitzpatrick MD Discharge: Date of : 38 Report #: [id number] THIS REPORT FOR: //name// [facility] ED Test Date: 2019-02-03 Test Time: 23:37:37 Pat Name: SCOTTY SANTAMARIA Department: Room: [address] Gender: F Retail Sales Representative: LOCO : 1940 Requested By: Madan Jennings Order Number: [id number] Reading MD: Measurements Intervals [place] Rate: 77 P: -66 HI: 162 QRS: -49 QRSD: 87 T: 85 QT: 426 QTc: 483 Interpretive Statements Ectopic atrial rhythm Atrial premature complex Inferior infarct, old No previous ECG available for comparison [email or web address] By: 36 36 Epiphany Epiphany, /EPI
[~2019-02-03 21:54] MED LIST changes: +GLUCOTROL5 MG PO; +REMERON30 MG PO; +SALONPAS PATCH1 EAC1 TOP; +SPIRIVA18 MCG INH
[2019-02-03 22:22] LABS: BE -12.3 mmol/L (-2 to +3)
[2019-02-03 22:24] LABS: PCO2 60.5 mmHg (35.0-45.0); pH 7.085 (7.340-7.450)
[2019-02-03 22:35] LABS: HEMATOCRIT 33.3 % (37.0-47.0); HEMOGLOBIN 10.4 gm/dL (12.0-15.0); MCH 30.4 pg (26.0-34.0); MCHC 31.2 g/dL (28.0-37.0); MCV 97.7 fL (80.0-100.0); MPV 7.3 fl. (7.2-11.1); NUCLEATED RBCS 0 /100WBC; PLATELET COUNT* 248 thou/uL (150-400); RBC 3.41 mil/uL (4.20-5.00); RDW-CV 13.7 % (10.5-14.5); WBC 18.5 thou/uL (4.0-11.0)
[2019-02-03 22:49] LABS: CALCIUM 7.8 mg/dL (8.5-10.1); CREATININE 2.5 mg/dL (0.6-1.3)
[2019-02-03 22:51] LABS: POTASSIUM 6.6 mmol/L (3.5-5.1)
[2019-02-03 23:01] LABS: ALBUMIN 2.2 g/dL (3.4-5.0); CK-MB MASS 3.2 ng/mL (<0.5-3.6); MAGNESIUM 2.2 mg/dL (1.8-2.4); TOTAL BILIRUBIN 0.2 mg/dL (<0.1-1.0); TOTAL PROTEIN 4.8 g/dL (6.4-8.2); TROPONIN-I LEVEL 0.13 ng/mL (<0.06)
[2019-02-03 23:06] LABS: APTT 27.9 Seconds (25.0-31.3); INR 1.3
[2019-02-03 23:37] LABS: ABSOLUTE LYMPHOCYTES 7.8 thou/uL (0.8-5.3); ABSOLUTE NEUTROPHILS 10.7 thou/uL (1.6-8.1)
[2019-02-03 23:38] LABS: PLATELET ESTIMATE ADEQUATE
[2019-02-03 23:51] VITALS: BP 126/56
[2019-02-04] VITALS (81 sets, daily range): BP systolic 72–154; BP diastolic 37–80
--- NOTE | 2019-02-04 03:41 | NUR ---
TARGET TEMPERATURE OF 93.0 F REACHED AT THIS TIME.
--- NOTE | 2019-02-04 06:20 | NUR ---
PATIENT TO ICU ROOM 4 ON A VENTILATOR AND ACCOMPANIED BY RN AND RT. ON LEVO AND EPI GTT. TURNED EPI OFF RIGHT ON ARRIVAL. HYPOTHERMIA PROTOCOL STARTED IN ER. PATIENT STARTED COOLING AROUND 2300, ACHIEVED TARGETED TEMP OF 93 F AT 0341. PATIENT ON FENTANYL AND VERSED GTT FOR SEDATION. PER PULMONARY, MAX FOR FENTANYL IS 150 MCG/HR AND 15 MG/HR FOR VERSED TO AVOID USE OF PARALYTICS. PATIENT CURRENTLY ON 150 OF FENTANYL AND 10 OF VERSED WITH CONTROLLED SHIVERING. LEVOPHED TITRATED OFF WITH MAP >65. VENT SETTING ADJUSTED PER PULMONARY. NSR ON THE MONITOR WITH OCCASSIONAL PVCs, CVP>10 WITH GOOD WAVEFORM. FECAL MANAGEMENT SYSTEM PLACED FOR LIQUIDY STOOL. ABRASION/BRUISING TO LEFT LOWER CHEST AREA, POSSIBLY FROM CPR, NOTED. PICTURE TAKEN AND IN CHART. PATIENT STARTED ON LOW DOSE INSULIN PER SLIDING JAMILE THIS AM. Q2 TURNS FOR SKIN INTEGRITY.
[2019-02-04 07:16] LABS: HEMATOCRIT 32.2 % (37.0-47.0); HEMOGLOBIN 10.3 gm/dL (12.0-15.0); MCH 30.4 pg (26.0-34.0); MCHC 31.8 g/dL (28.0-37.0); MCV 95.6 fL (80.0-100.0); MPV 7.5 fl. (7.2-11.1); NUCLEATED RBCS 0 /100WBC; PLATELET COUNT* 231 thou/uL (150-400); RBC 3.37 mil/uL (4.20-5.00); RDW-CV 13.9 % (10.5-14.5); WBC 23.8 thou/uL (4.0-11.0)
[2019-02-04 07:32] LABS: CALCIUM 7.9 mg/dL (8.5-10.1); CK-MB MASS 20.8 ng/mL (<0.5-3.6); CREATININE 2.5 mg/dL (0.6-1.3); PHOSPHORUS* 4.6 mg/dL (2.5-4.9)
[2019-02-04 07:35] LABS: POTASSIUM 4.4 mmol/L (3.5-5.1)
[2019-02-04 07:36] LABS: TROPONIN-I LEVEL 0.89 ng/mL (<0.06)
[2019-02-04 07:56] LABS: ABSOLUTE NEUTROPHILS 22.8 thou/uL (1.6-8.1)
[2019-02-04 07:57] LABS: APTT 28.2 Seconds (25.0-31.3); FIBRINOGEN 240 mg/dL (200-340); INR 1.2; PLATELET ESTIMATE ADEQUATE; PROTIME 12.7 Seconds (9.20-11.50)
[2019-02-04 08:11] LABS: BE -6.1 mmol/L (-2 to +3); PCO2 34.5 mmHg (35.0-45.0); pH 7.352 (7.340-7.450)
[2019-02-04 08:13] LABS: PO2 150.5 mmHg (75.0-100.0)
[2019-02-04 11:17] LABS: HEMATOCRIT 28.7 % (37.0-47.0); HEMOGLOBIN 9.1 gm/dL (12.0-15.0)
--- NOTE | 2019-02-04 11:40 | EKG ---
[place] [address] ELECTROCARDIOGRAM REPORT Name: SCOTTY SANTAMARIA Room: [address] ADM IN ..#: [id number] Admission: 02/03/19 Attend Phys: Camden Fitzpatrick MD Discharge: Date of : 38 Report #: [id number] THIS REPORT FOR: //name// [facility] ED Test Date: 2019-02-03 Test Time: 23:37:37 Pat Name: SCOTTY SANTAMARIA Department: Room: [facility] Gender: F Jewelry Manager: LOCO : 1940 Requested By: Madan Jennings Order Number: [id number] MD: Benny Baldwin Measurements Intervals [place] Rate: 77 P: -66 DE: 162 QRS: -49 QRSD: 87 T: 85 QT: 426 QTc: 483 Interpretive Statements nsr biatrial enlargement Atrial premature complex Inferior infarct, old Compared to ECG 11/13/2018 19:29:38 Ectopic atrial rhythm now present Atrial premature complex(es) now present Myocardial infarct finding now present Sinus rhythm no longer present Ventricular premature complex(es) no longer present Electronically Signed On 02-04-2019 11:40:14 CDT by Benny Baldwin [email or web address] <ELECTRONICALLY SIGNED> By: Benny Baldwin MD, [facility] 02/04/19 1140 2337 2337 Benny Baldwin MD, [facility] /EPI
[2019-02-04 13:15] LABS: ABSOLUTE LYMPHOCYTES 0.4 thou/uL (0.8-5.3); ABSOLUTE MONOCYTES 0.3 thou/uL (0.0-1.2); ABSOLUTE NEUTROPHILS 16.3 thou/uL (1.6-8.1); BASOPHILS 0.1 %; HEMATOCRIT 26.4 % (37.0-47.0); HEMOGLOBIN 8.5 gm/dL (12.0-15.0); LYMPHOCYTES 2.5 %; MCH 30.6 pg (26.0-34.0); MCHC 32.2 g/dL (28.0-37.0); MCV 95.2 fL (80.0-100.0); MONOCYTES 1.7 %; MPV 7.6 fl. (7.2-11.1); NUCLEATED RBCS 0 /100WBC; PLATELET COUNT* 163 thou/uL (150-400); POLYS 95.7 %; RBC 2.78 mil/uL (4.20-5.00); RDW-CV 13.6 % (10.5-14.5)
[2019-02-04 13:32] LABS: APTT 30.3 Seconds (25.0-31.3); INR 1.3; PROTIME 13.4 Seconds (9.20-11.50)
[2019-02-04 13:36] LABS: CALCIUM 7.7 mg/dL (8.5-10.1); CK-MB MASS 20.8 ng/mL (<0.5-3.6); CREATININE 2.4 mg/dL (0.6-1.3); MAGNESIUM 1.8 mg/dL (1.8-2.4); PHOSPHORUS* 4.3 mg/dL (2.5-4.9); POTASSIUM 3.9 mmol/L (3.5-5.1)
[2019-02-04 16:46] LABS: HEMATOCRIT 25.6 % (37.0-47.0); HEMOGLOBIN 8.3 gm/dL (12.0-15.0)
[2019-02-04 17:01] LABS: CALCIUM 7.5 mg/dL (8.5-10.1); CREATININE 2.3 mg/dL (0.6-1.3); MAGNESIUM 1.7 mg/dL (1.8-2.4); POTASSIUM 3.5 mmol/L (3.5-5.1)
--- NOTE | 2019-02-04 17:28 | NUR ---
PATIENT SOMEWHAT PROGRESSING TOWARDS GOALS. REMAINS ON CODE ICE PROTOCOL. INSTUBATED AND SEDATED. PER PULMONARY, ON 10 MG/HR VERDSED AND 150 MCG/HR FENTANYL TO CONTROL SHIVERING AND AVOIDING PARALYTICS. PATIENT TOLERATING CODE ICE WELL. EYES ROLLED BACK IN HEAD, PUPILS 1+ AND FIXED AT THIS TIME. DOES WINCE TO PAIN, GAG REFLEX AND CORNEAL REFLEXES PRESENT. MONITORING H&H FOR BLEEDING Q4H PER DR FONTANEZ. UPDATED VLAD (SON) OVER THE PHON. STATED HE WILL BE HERE THIS EVENING. HU CASTANEDA (SON) IN PERSON. BOTH AGREEABLE TO CARE PLAN. DENIES NEW CONCERNS ABOUT CARE PLAN.
[2019-02-04 21:06] LABS: HEMOGLOBIN 8.6 gm/dL (12.0-15.0)
[2019-02-05] VITALS (69 sets, daily range): BP systolic 71–164; BP diastolic 29–67
[2019-02-05 01:13] LABS: ABSOLUTE LYMPHOCYTES 0.4 thou/uL (0.8-5.3); ABSOLUTE MONOCYTES 0.4 thou/uL (0.0-1.2); BASOPHILS 0.2 %; HEMOGLOBIN 8.9 gm/dL (12.0-15.0); MCH 30.9 pg (26.0-34.0); MCHC 32.8 g/dL (28.0-37.0); MCV 94.2 fL (80.0-100.0); MONOCYTES 2.6 %; MPV 7.5 fl. (7.2-11.1); NUCLEATED RBCS 0 /100WBC; PLATELET COUNT* 167 thou/uL (150-400); POLYS 94.2 %; RBC 2.87 mil/uL (4.20-5.00); RDW-CV 13.8 % (10.5-14.5); WBC 14.9 thou/uL (4.0-11.0)
[2019-02-05 01:38] LABS: CREATININE 2.2 mg/dL (0.6-1.3); MAGNESIUM 2.4 mg/dL (1.8-2.4); PHOSPHORUS* 3.4 mg/dL (2.5-4.9); POTASSIUM 3.5 mmol/L (3.5-5.1)
[2019-02-05 02:10] LABS: APTT 29.9 Seconds (25.0-31.3); INR 1.2; PROTIME 12.4 Seconds (9.20-11.50)
[2019-02-05 05:35] LABS: HEMATOCRIT 26.5 % (37.0-47.0); HEMOGLOBIN 8.6 gm/dL (12.0-15.0)
--- NOTE | 2019-02-05 05:58 | NUR ---
PATIENT STARTED REWARMING AT 0415. HG HAS STABILIZED PER Q4H H$H. BLOOD TRANSFUSION CONSENT SIGNED BY VLAD, NEXT OF KIN, AND IN CHART IF NEEDED. NO BM THIS SHIFT, 575 CC UOP. VITALS STABLE, SINUS BRADYCARDIA ON THE MONITOR. NO CHANGES IN VENT SETTINGS. DRIPS RUNNING AT THE SAME RATE. Q2 TURNS FOR SKIN INTEGRITY.
[2019-02-05 06:13] LABS: ALBUMIN 2.7 g/dL (3.4-5.0); CALCIUM 7.7 mg/dL (8.5-10.1); CREATININE 2.2 mg/dL (0.6-1.3); MAGNESIUM 2.3 mg/dL (1.8-2.4); POTASSIUM 3.4 mmol/L (3.5-5.1); TOTAL BILIRUBIN 0.4 mg/dL (<0.1-1.0); TOTAL PROTEIN 4.9 g/dL (6.4-8.2); TROPONIN-I LEVEL 0.28 ng/mL (<0.06)
--- NOTE | 2019-02-05 08:09 | CON ---
[address] [address] CONSULTATION Name: SCOTTY SANTAMARIA Room: [address] IN ..#: [id number] Admission: 02/03/19 Attend Phys: Camden Fitzpatrick MD Discharge: Date of : 36 Report #: [id number] THIS REPORT FOR: //name// CC: Gene Fitzpatrick DATE OF SERVICE: 02/04/2019 REQUESTING PHYSICIAN: Dr. Ferrara. INDICATION FOR CONSULTATION: Acute respiratory failure following cardiac arrest/ventilator management. HISTORY OF PRESENT ILLNESS: An 78-year-old female with past medical history as mentioned below. This does include a history of COPD, the patient is on long-term oxygen. The patient previously was not known to be on long-term prednisone. There is mention of 10 mg of prednisone on her admission medication list, though it is not completely clear to me as to whether she got started recently on long-term prednisone or whether this refers to a prednisone taper. She is not reported to be on long-term CPAP or BiPAP. The patient is a resident of a long-term care facility. The patient still does smoke. She does have renal insufficiency. Her baseline creatinine is around 1.6. The patient is now admitted overnight. Presentation is with cardiac arrest. The patient was reported to have been found pulseless at her longterm. The initial rhythm is not known to me. The patient received CPR for at least 20 minutes and received at least 3 amps of epinephrine. Eventually, she did have return of spontaneous circulation and was transferred here. Note that the patient previously was on Eliquis for paroxysmal atrial fibrillation and there is a question regarding a fluid collection around her liver and spleen on the CT performed over night. Overnight, the patient initially was hypotensive and did require vasopressors until this morning. The patient was on norepinephrine, which has just been stopped as the patient's blood pressure has improved. I was called during the night. I elected to avoid paralysis and therefore ordered Versed as well as fentanyl. The patient, however, is requiring around 15 of Versed as well as 150 of fentanyl on account of being on code ice. The patient's urine output is dropping. In fact this morning, has had only minimal urine. Her creatinine has climbed, note that her baseline creatinine is 1.6. The patient's creatinine upon admission was 2.5 and it is 2.5 this morning as well. The patient did receive 2 liters of crystalloids. The patient is on normal saline at 100. The patient is ventilating and oxygenating adequately. There is a questionable history of aspiration on initial CPR. There are multiple rib fractures noted on the initial CT; however, the presence of infiltrates is minimal. The patient is on code ice and also is sedated as mentioned above; therefore, [place] [address] CONSULTATION Name: SCOTTY SANTAMARIA Room: [address] IN [facility].#: [id number] Admission: 02/03/19 Attend Phys: Camden Fitzpatrick MD Discharge: Date of : 38 Report #: [id number] provide further history or review of systems. Initially, the patient had significant acidosis, which was both respiratory as well as metabolic. I adjusted the ventilator adequately and repeated arterial blood gas. The patient's last arterial blood gas shows resolution of respiratory acidosis with ventilator changes. There is a mild metabolic acidosis still persisting, but this is now compensated and the patient's pH is now normal. PAST MEDICAL HISTORY: COPD, on long-term oxygen, not completely clear to me as to whether the patient was recently started on long-term prednisone or not. Chronic renal insufficiency, the patient's baseline creatinine is noted to be 1.6. The patient does have a history of coronary artery disease, has had cardiac stents in the past. She is reported to have had diastolic congestive heart failure. The last available echocardiogram shows normal left ventricular ejection fraction of around 55-60%. There is mild elevation of pulmonary artery pressures at around 51. Partially resected tongue cancer several years ago with no evidence of recurrence. Also, history of breast cancer, status post lumpectomy with no evidence of recurrence. In fact, the patient has had bilateral lumpectomies. Diabetes, hypertension, hysterectomy, hemorrhoidectomy, radiation therapy to her tongue, right total hip replacement. I do not have any previous PFTs available. Paroxysmal atrial fibrillation, on Eliquis. SOCIAL HISTORY: The patient has an extensive history of smoking, is reported to have smoked more than 50 pack years and was last reported to be still smoking, although she lives at the [facility]. No known history of heavy alcohol use or illegal drug use. CURRENT MEDICATIONS: List in [place] reviewed. HOME MEDICATIONS: List in [place] also reviewed. Previously, she was not on long-term prednisone and unknown as to whether this was started recently. FAMILY HISTORY: Father of trauma. Siblings have had diabetes and hypertension. ALLERGIES: SHE IS REPORTED TO BE ALLERGIC TO PENICILLIN. SHE GETS HIVES WITH PENICILLIN. There is previous documentation of the patient receiving ceftriaxone as well as cefepime without any adverse reaction and therefore, the patient does not appear to be allergic to cephalosporins. PHYSICAL EXAMINATION: GENERAL: The patient is sedated as described above. VITAL SIGNS: Has a pulse of 55 and a blood pressure of 107/57. She has recently had the norepinephrine discontinued. She is saturating 100%. She is on code ice with a temperature of 32.9. She has a set rate on the ventilator of 20. She is breathing at 20, tidal volume is 500, FiO2 has recently been dropped to 50%. She is on [place] 5[place] [address] CONSULTATION Name: HINASCOTTY Isabel Room: [address] IN [facility]#: [id number] Admission: 02/03/19 Attend Phys: Camden Fitzpatrick MD Discharge: Date of : 38 Report #: [id number] HEENT: Head is normocephalic and atraumatic. Endotracheal tube is in good position. NECK: Does not show raised JVP. There is a central line in place. CHEST: Clear to auscultation. HEART: Regular, no murmur. ABDOMEN: Soft and nontender. EXTREMITIES: Lower extremities show no edema and no calf tenderness. SKIN: Dry and intact. NEUROLOGICAL: Limited due to the patient being on sedation as well as code ice. The patient's CT chest films as well as report are reviewed and are as described above. The patient also did have a CT of the abdomen and pelvis, there is some fluid around the spleen as well as liver, this is also reviewed. LABORATORY DATA: The patient's lab work including arterial blood gases are in [facility], these are reviewed. Initial hyperkalemia in [facility] reviewed. ASSESSMENT AND PLAN: 1. Cardiac arrest. The etiology is not fully defined. At this time, I would defer evaluation to other service. There is no obvious evidence of a respiratory event leading to cardiac arrest. 2. Acute hypercarbic respiratory failure following a cardiac arrest. The patient is on oxygen mcfp. At this time, she is stable on the ventilator and from a pulmonary point of view, should be able to tolerate fluids. I have elected to administer fentanyl and Versed as I wanted to avoid use of vecuronium. Hopefully when she is off code ice, we can taper these down to off. 3. Acute on chronic renal failure/hypotension. The patient's creatinine is elevated beyond her baseline. She is making only minimal amounts of urine. From a respiratory point of view, she should be able to tolerate more fluids. She has already been bolused by a bolus with 2 liters of normal saline according to the Surviving Sepsis Guidelines. If the patient has not responded adequately to substantial amounts of crystalloids, then the use of albumin is indicated. Therefore, I went ahead and ordered a bolus of 500 mL of 5% albumin. If the patient's urine output remains low or if she remains hypotensive, I would favor giving her more fluids. The patient remains on 100 mL of normal saline. 4. Chronic obstructive pulmonary disease. The patient does not appear to be actively bronchospastic at this time. She remains on nebulized bronchodilators. For now, I decided to hold off on use of steroids. Certainly, these could be considered later should the patient's condition deteriorate. 5. Rib fractures/possible aspiration/pulmonary infiltrates. The pulmonary infiltrates are minimal on the CT. I do not see any large infiltrate. I feel that in this patient, administration of vancomycin is high risk. Previously, the patient has tolerated cephalosporins without problems; therefore, I went ahead and discontinued vancomycin as well as Levaquin and went ahead and ordered cefepime should the patient's condition improve. Potentially, cefepime could be switched over to ceftriaxone or even discontinued if no source of infection is [address] [address] CONSULTATION Name: SCOTTY SANTAMARIA Room: [address] IN [place]#: [id number] Admission: 02/03/19 Attend Phys: Cmaden Fitzpatrick MD Discharge: Date of : 38 Report #: [id number]. If MRSA coverage is needed, then I would favor use of linezolid as I feel that it will be safer for use in this patient than vancomycin; however, there is no definite evidence of MRSA at this time and therefore, I held off for now. 6. Fluid collection around liver and spleen and long-term use of Eliquis for paroxysmal atrial fibrillation. Certainly, the patient needs to be observed for ongoing intraabdominal hemorrhage. Fortunately, her hemodynamic status is better. Her H and H is being followed. Her Eliquis is on hold. I would defer to the cardiology service regarding aspirin. The patient is critically ill at this time. Total time spent providing critical care to this patient today is around 45 minutes. <ELECTRONICALLY SIGNED> By: Elvie Rivera MD 02/05/19 0809 [id number] [id number] Bowman MD /kat
[2019-02-05 09:01] LABS: HEMATOCRIT 24.4 % (37.0-47.0)
[2019-02-05 09:14] LABS: CALCIUM 7.3 mg/dL (8.5-10.1); CREATININE 2.1 mg/dL (0.6-1.3); POTASSIUM 3.2 mmol/L (3.5-5.1)
--- NOTE | 2019-02-05 09:33 | NUR ---
PATIENT REWARMING AT RATE FASTER THAN IDEAL. MACHINE REPROGRAMMED TO 0.25 DEGREES AN HOUR. LINENS REMOVED.
--- NOTE | 2019-02-05 11:07 | NUR ---
Nutrition: Pt admitted s/p cardiac arrest. Currently rewarming. Wt fluctuates 120-160#. OG with dark liquid. Assessed d/t Burton score 11. NPO. H/o ARF, CAD. Lab: BUN 58, cr 2.1, Na 146, K+ 3.2, alb 2.7, BG 188. D5 @80mL. Will follow POC and make recs as needed. Follow up 02/06/19.
--- NOTE | 2019-02-05 12:25 | 2DMMODE ---
[place] [address] 2 D/M-MODE ECHOCARDIOGRAM Name: SCOTTY SANTAMARIA Room: [address] IN [facility]#: [id number] Admission: 02/03/19 Attend Phys: Camden Fitzpatrick MD Discharge: Date of : 38 Date of Service: 02/05/19 1225 Report #: [id number] THIS REPORT FOR: //name// APPROVED REPORT Study performed: 02/05/2019 09:31:02 EXAM: Comprehensive 2D, Doppler, and color-flow Echocardiogram Patient Location: In-Patient Room #: [facility] Status: routine BSA: 1.71 HR: 78 bpm BP: 113/47 mmHg Rhythm: NSR Other Information Study Quality: Good Indications cardiac arrest 2D Dimensions IVSd: 11.44 (7-11mm) LVOT Diam: 22.41 (18-24mm) LVDd: 43.79 mm PWd: 10.42 (7-11mm) Ascending Ao: 32.37 (22-36mm) LVDs: 29.08 (25-40mm) Aortic Root: 31.31 mm Volumes Left Atrial Volume (Systole) LA ESV Index: 36.60 mL/m2 Aortic Valve AoV Peak Edmond.: 1.45 m/s AO Peak Gr.: 8.46 mmHg LVOT Max P.32 mmHg AO Mean Gr.: 4.83 mmHg LVOT Mean P.23 mmHg LVOT Max V: 1.04 m/s AO V2 VTI: 31.27 cm LVOT Mean V: 0.69 m/s MARTHA (VTI): 3.54 cm2 LVOT V1 VTI: 28.09 cm Mitral Valve MV Mean Gr.: 4.65 mmHg E/A Ratio: 0.57 MV Decel. Time: 304.90 ms MV E Max Edmond.: 0.81 m/[place] [address] 2 D/M-MODE ECHOCARDIOGRAM Name: SCOTTY SANTAMARIA Room: [address] IN [facility]#: [id number] Admission: 02/03/19 Attend Phys: Camden Fitzpatrick MD Discharge: Date of : 38 Date of Service: 02/05/19 1225 Report #: [id number] MV PHT: 88.42 ms MVA (PHT): 2.49 cm2 TDI E/Lateral E': 10.13 E/Medial E': 16.20 Medial E' Edmond.: 0.05 m/s Lateral E' Edmond.: 0.08 m/s Pulmonary Valve PV Peak Edmond.: 1.25 m/s PV Peak Gr.: 6.28 mmHg Tricuspid Valve RAP Estimate: 5.00 mmHg TR Peak Gr.: 27.49 mmHg RVSP: 32.00 mmHg PA Pressure: 32.00 mmHg Left Ventricle The left ventricle is normal size. There is normal LV segmental wall motion. There is normal left ventricular wall thickness. Left ventricular systolic function is normal. The left ventricular ejection fraction is within the normal range. LVEF is 60-65%. Grade I - abnormal relaxation pattern. Right Ventricle The right ventricle is normal size. The right ventricular systolic function is normal. Atria Left atrium is mildly dilated. The right atrium size is normal. Aortic Valve The Aortic valve is sclerotic. No aortic regurgitation is present. There is no aortic valvular stenosis. Mitral Valve There is mitral annular calcification. Mild mitral regurgitation. No evidence of mitral valve stenosis. Tricuspid Valve The tricuspid valve is normal in structure. Trace tricuspid regurgitation. estimate pa pressure 35 mm Hg Pulmonic Valve Pulmonic valve is not well visualized. There is no pulmonic [place] [address] 2 D/M-MODE ECHOCARDIOGRAM Name: SANTAMARIASCOTTY Room: [address] IN [facility]#: [id number] Admission: 02/03/19 Attend Phys: Camden Fitzpatrick MD Discharge: Date of : 38 Date of Service: 02/05/19 1225 Report #: [id number] Great Vessels The aortic root is normal in size. IVC is normal in size and collapses >50% with inspiration. Pericardium There is no pericardial effusion. <Conclusion> LVEF is 60-65%. Left atrium is mildly dilated. The Aortic valve is sclerotic. Mild mitral regurgitation. <ELECTRONICALLY SIGNED> By: Landen Zamora MD, [facility] 02/05/19 1225 1225 1225 Landen Zamora MD, FACC /INF
[2019-02-05 13:21] LABS: HEMATOCRIT 24.9 % (37.0-47.0); HEMOGLOBIN 8.1 gm/dL (12.0-15.0); MCH 30.4 pg (26.0-34.0); MCHC 32.4 g/dL (28.0-37.0); MPV 7.6 fl. (7.2-11.1); RBC 2.65 mil/uL (4.20-5.00); RDW-CV 13.7 % (10.5-14.5); WBC 17.2 thou/uL (4.0-11.0)
[2019-02-05 13:40] LABS: CALCIUM 8.1 mg/dL (8.5-10.1); CREATININE 2.2 mg/dL (0.6-1.3); MAGNESIUM 2.5 mg/dL (1.8-2.4); PHOSPHORUS* 3.6 mg/dL (2.5-4.9)
[2019-02-05 13:41] LABS: POTASSIUM 4.4 mmol/L (3.5-5.1)
[2019-02-05 13:43] LABS: APTT 30.1 Seconds (25.0-31.3); INR 1.2
[2019-02-05 13:52] LABS: BE -7.6 mmol/L (-2 to +3); PCO2 26.9 mmHg (35.0-45.0); pH 7.397 (7.340-7.450)
--- NOTE | 2019-02-05 15:00 | NUR ---
PT ADMITTED ON 02/03, REMAINS ON VENT AND CODE ICE, CURRENTLY BEING RE-WARMED. 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 DE SAID PT HAS BEEN DECLINING SINCE HER SEVERAL MONTHS AGO. NO FAMILY IN ROOM EARLIER. CASE MGT WILL CONTINUE TO FOLLOW.
--- NOTE | 2019-02-05 15:11 | NUR ---
NORMOTHERMIA REACHED AT 1414. PATIENT NOW REQURING LEVOPHED FOR BLOOD PRESSURE SUPPORT PER MED TITRATIONS. DR FONTANEZ NOTIFIED. ORDERS TO INCREASE FLUID RATE TO 120 ML/HR AND TITRATE LEVOPHED NEEDED. CHANGED ON PUMP.
--- NOTE | 2019-02-05 16:26 | NUR ---
WOUND NURSE: PER THE STAFF NURSE. WOUND NURSE CONSULT TRIGGERED BY LOW KIMBERLY SCALE. NO WOUNDS TO ADDRESS AND PATIENT NOT ASSESSED BY THIS NURSE A RESULT.
--- NOTE | 2019-02-05 16:47 | NUR ---
PATIENT SOMEWHAT PROGRESSING TOWARDS GOALS. REWARMING COMPLETE AT 1415. PATIENT MAINTAINING NORMOTHERMIA AT THIS TIME. CURRENT TEMP 98.0. SEDATION OFF FOR SEDATION VACATION: PATIENT MAKES RHYTHMIC JERKING MOVEMENTS OF EYES AND TONGUE, BUT MAKES NO PURPOSEFUL MOVEMENT. WINCING/GAG PRESENT. NO BABINSKI NOTED. POST REWARMING, PATIENT REQURING BLOOD PRESSURE SUPPORT. CURRENTLY ON 1MCG/MIN LEVOPHED (QUAD STRENGHT). ON 1600 ASSESSMENT, PATIENT NOTED TO HAVE MUCH MORE WEAK PULSE IN LEFT UPPER EXTREMITY. CAP REFILL REMAINS <3, COLOR PINK. BILATERAL EXTREMITIES COLD. DR FONTANEZ NOTIFIED. ORDERS TO CONTINUE TO MONITOR AND NOTIFY IF PERFUSION WORSENS. UPDATED VLAD (SON) OVER THE PHONE. UPDATED TONYA (SON) IN PERSON DURING VISIT. NO OTHER NEW CONCERNS NOTED.
[2019-02-05 17:03] LABS: HEMATOCRIT 24.8 % (37.0-47.0); HEMOGLOBIN 7.9 gm/dL (12.0-15.0)
[2019-02-05 23:19] LABS: HEMATOCRIT 26.4 % (37.0-47.0); HEMOGLOBIN 8.8 gm/dL (12.0-15.0)
[2019-02-06] VITALS (25 sets, daily range): BP systolic 106–183; BP diastolic 46–101
[2019-02-06 05:01] LABS: BE -7.8 mmol/L (-2 to +3); PCO2 20.9 mmHg (35.0-45.0); pH 7.463 (7.340-7.450)
[2019-02-06 05:04] LABS: PO2 143.7 mmHg (75.0-100.0)
--- NOTE | 2019-02-06 05:37 | NUR ---
PT STABLE THE WHOLE NIGHT. LEVOPHED HOLD AND BP WAS MAINTING WELL. PT STILL IN THE PROCESS OF REWARMING. WITH GAG REFLEX DURING SUCTIONING AND WINCE. NO MOVEMENT OF THE EXTRIMITIES UPON GIVING PAINFUL STIMULI. STILL TOWARDS ATTAINING GOAL.
[2019-02-06 05:40] LABS: HEMATOCRIT 27.3 % (37.0-47.0); HEMOGLOBIN 8.9 gm/dL (12.0-15.0); MCH 30.3 pg (26.0-34.0); MCHC 32.4 g/dL (28.0-37.0); MCV 93.3 fL (80.0-100.0); MPV 8.5 fl. (7.2-11.1); RBC 2.92 mil/uL (4.20-5.00); RDW-CV 13.6 % (10.5-14.5); WBC 22.4 thou/uL (4.0-11.0)
[2019-02-06 06:02] LABS: ALBUMIN 2.6 g/dL (3.4-5.0); CALCIUM 8.3 mg/dL (8.5-10.1); CREATININE 2.4 mg/dL (0.6-1.3); MAGNESIUM 2.5 mg/dL (1.8-2.4); POTASSIUM 4.6 mmol/L (3.5-5.1); TOTAL BILIRUBIN 0.3 mg/dL (<0.1-1.0); TOTAL PROTEIN 5.2 g/dL (6.4-8.2); TROPONIN-I LEVEL 0.12 ng/mL (<0.06)
--- NOTE | 2019-02-06 10:57 | NUR ---
Nutrition: Pt still unresponsive, normothermic, off sedation. OG with dark liquid. Alb 2.6, prealb 19.1, BG 310, BUN 58, cr 2.1. Will continue following for POC and give recs as needed. Follow up 02/07/19.
[2019-02-06 11:32] LABS: BE -8.7 mmol/L (-2 to +3); pH 7.343 (7.340-7.450)
[2019-02-06 11:34] LABS: PO2 138.6 mmHg (75.0-100.0)
--- NOTE | 2019-02-06 14:07 | NUR ---
PSYCH CONSULT DONE, OKAY TO RELEASE HER OFF 1:1 OBSERVATION.
--- NOTE | 2019-02-06 15:48 | NUR ---
WOUND CARE NOTE: PT SEEN FOR LOW KIMBERLY. PT RESTING IN BED ON VENT. SPOKE TO PTS NURSE. PTS BED LOW AIRLOSS FUNCTION NOT ON. NURSE TO PLUG IN AND TURN ON. PLEASE LET WOUND NURSE KNOW IF THERE ARE ANY OTHER CONCERNS.
--- NOTE | 2019-02-06 20:03 | NUR ---
PT REMAINS ON VENT SUPPORT, NO SEDATION IN THE MORNING. AT 1630 PT STARTED BEING TACHYPNEIC UPTO 50s. PULMONARY NOTIFIED, RECEIVED ORDERS FOR VENT SETTING CHANGES, RR INCREASED TO 24 AND PEEP TO 7. SEDATION WITH FENTANYL AND PROPOFOL INITIATED. CT HEAD DONE. TUBE FEEDING INITIATED AND PT TOLERATING. ROUTINE CARE PROVIDED.
[2019-02-07] VITALS (33 sets, daily range): BP systolic 118–163; BP diastolic 44–85
[2019-02-07 03:48] LABS: HEMATOCRIT 24.4 % (37.0-47.0); HEMOGLOBIN 7.8 gm/dL (12.0-15.0); MCHC 31.8 g/dL (28.0-37.0); MCV 94.3 fL (80.0-100.0); MPV 8.2 fl. (7.2-11.1); RBC 2.59 mil/uL (4.20-5.00); WBC 19.7 thou/uL (4.0-11.0)
[2019-02-07 04:18] LABS: ALBUMIN 2.2 g/dL (3.4-5.0); CALCIUM 8.3 mg/dL (8.5-10.1); CREATININE 2.3 mg/dL (0.6-1.3); POTASSIUM 4.7 mmol/L (3.5-5.1); TOTAL BILIRUBIN 0.3 mg/dL (<0.1-1.0); TOTAL PROTEIN 4.8 g/dL (6.4-8.2)
--- NOTE | 2019-02-07 04:59 | NUR ---
PT. REMAINS SEDATED ON VENTILATOR, PROPOFOL INCREASED TO 30MCG/KG/MIN PER RESPIRATORY THERAPY REQUEST DUE TO "STACKED BREATHING". FENTANYL GTT AT 50MCG/HR. PT. DOES RESPOND TO PAINFUL STIMULI BUT VERY MINIMAL. PUPILS SLUGGISH. BRIEF EPISODES OF AFIB THROUGHOUT SHIFT. SINUS RHYTHM AT THIS TIME. BP'S REMAIN STABLE. COMPLETE BED BATH GIVEN, CODE ICE PADS REMOVED. WILL CONTINUE TO MONITOR.
[2019-02-07 05:21] LABS: BE -7.4 mmol/L (-2 to +3); PCO2 28.8 mmHg (35.0-45.0); pH 7.384 (7.340-7.450)
[2019-02-07 05:22] LABS: PO2 140.2 mmHg (75.0-100.0)
--- NOTE | 2019-02-07 10:36 | NUR ---
PT MOVING MOUTH DURING ORAL CARE. DOPPLER USED FOR LEFT RADIAL PULSE AND RIGHT PEDAL PULSE. VSS. AFEBRILE. SEDATION VACATION STARTED. WILL CONTINUE TO MONITOR. REFER TO SEDATION INTERVENTION. DR FLORES IN TO SEE PT. EEG ORDERED.
--- NOTE | 2019-02-07 10:54 | NUR ---
PER PULMONARY AFTER SEDATION VACATION PUT PT ON PROPOFOL AND KEEP OFF FENTANLY. IF PROPOFOL INCREASED AND PT'S BP DECREASING, MAY ADD FENTANYL AND THEN TRY TO TITRATE DOWN PROOFOL. PER PULMONARY TRY TO KEEP PT ON 1 MEDICATION FOR SEDATION.
--- NOTE | 2019-02-07 10:56 | EKG ---
[place] [address] ELECTROCARDIOGRAM REPORT Name: SCOTTY SANTAMARIA Room: [address] ADM IN .R.#: [id number] Admission: 02/03/19 Attend Phys: Camden Fitzpatrick MD Discharge: Date of : 36 Report #: [id number] THIS REPORT FOR: //name// [facility] Test Date: 2019-02-07 Test Time: 08:55:15 Pat Name: SCOTTY MARRIS Department: Room: [address] Gender: F Loan Auditor: : 1940 Requested By: Landen Zamora Order Number: [id number] Severo MD: Landen Zamora Measurements Intervals [place]utton Rate: 83 P: -20 MT: 184 QRS: -21 QRSD: 75 T: 103 QT: 452 QTc: 532 Interpretive Statements Sinus rhythm Borderline left axis deviation Borderline abnrm T, anterolateral leads Prolonged QT interval Compared to ECG 02/03/2019 23:37:37 Prolonged QT interval now present Electronically Signed On 02-07-2019 10:56:04 CDT by Landen Zamora [email or web address] <ELECTRONICALLY SIGNED> By: Landen Zamora MD, [facility] 02/07/19 1056 0855 [id number] Landen Zamora MD, [facility] /EPI
--- NOTE | 2019-02-07 11:57 | NUR ---
PT TOLERATED SEDATION VACATION.
[2019-02-07 12:59] LABS: URINE BILIRUBIN NEGATIVE (Negative); URINE BLOOD TRACE (Negative); URINE CLARITY CLEAR; URINE COLOR YELLOW; URINE GLUCOSE-RANDOM NEGATIVE (Negative); URINE KETONES NEGATIVE (Negative); URINE LEUKOCYTES-REFLEX NEGATIVE (Negative); URINE NITRITE-REFLEX NEGATIVE (Negative); URINE PROTEIN NEGATIVE (Negative); URINE SPECIFIC GRAVITY 1.015 (1.005-1.030); URINE UROBILINOGEN 0.2 E.U./dl (0.2-1.0)
--- NOTE | 2019-02-07 15:59 | NUR ---
GRANDTOMY DIAZ AT THE BEDSIDE, NURSE GAVE HIM AN UPDATE ON PT'S CONDITION. REVIEWED COPY OF ADVANCE DIRECTIVE THAT WE HAVE ON AN OLD RECORD WITH GRANDTOMY DIAZ. HE CONFIRMS THAT 1ST AGETN LISTED, Franck ESPINO WAS PT'S WHO IS . SECOND AGENT LISTED IS PT'S SON TONYA (EMILY'S FATHER), THIRD AGENT LISTED IS VLAD, PT'S SON. EMILY SAID HIS FATHER TONYA AND VLAD 'HAVE BEEN TALKING AND ARE ON THE SAME PAGE.' TONYA IS A PILER WHO IS OUT OF TOWN NOW BUT SHOULD BE BACK IN TOWN TOMORROW. CALLED [facility] AND SPOKE WITH DE, UPDATE GIVEN.
--- NOTE | 2019-02-07 17:38 | NUR ---
PT OFF SEDATION OF 1300. FAMILY EMILY HERE THIS AFTERNOON TO SEE PT. UPDATE GIVEN. TEMP OF 99.0. FAN TURNED ON.
[2019-02-08] VITALS (34 sets, daily range): BP systolic 117–170; BP diastolic 41–74
[2019-02-08 04:55] LABS: HEMATOCRIT 25.4 % (37.0-47.0); HEMOGLOBIN 8.3 gm/dL (12.0-15.0); MCH 30.9 pg (26.0-34.0); MCHC 32.8 g/dL (28.0-37.0); MCV 94.1 fL (80.0-100.0); MPV 8.5 fl. (7.2-11.1); RBC 2.69 mil/uL (4.20-5.00); RDW-CV 13.5 % (10.5-14.5); WBC 18.5 thou/uL (4.0-11.0)
[2019-02-08 05:12] LABS: ALBUMIN 2.3 g/dL (3.4-5.0); CALCIUM 9.1 mg/dL (8.5-10.1); CREATININE 2.2 mg/dL (0.6-1.3); MAGNESIUM 1.9 mg/dL (1.8-2.4); TOTAL BILIRUBIN 0.4 mg/dL (<0.1-1.0); TOTAL PROTEIN 5.1 g/dL (6.4-8.2)
[2019-02-08 05:20] LABS: ABSOLUTE LYMPHOCYTES 1.3 thou/uL (0.8-5.3); ABSOLUTE MONOCYTES 0.9 thou/uL (0.0-1.2); BASOPHILS 0.2 %; EOSINOPHILS 0.1 %; HEMATOCRIT 25.5 % (37.0-47.0); HEMOGLOBIN 8.3 gm/dL (12.0-15.0); LYMPHOCYTES 7.1 %; MCH 30.4 pg (26.0-34.0); MCHC 32.5 g/dL (28.0-37.0); MCV 93.7 fL (80.0-100.0); MPV 8.5 fl. (7.2-11.1); NUCLEATED RBCS 0 /100WBC; PLATELET COUNT* 147 thou/uL (150-400); POLYS 87.6 %; RBC 2.72 mil/uL (4.20-5.00); RDW-CV 13.7 % (10.5-14.5); WBC 18.2 thou/uL (4.0-11.0)
[2019-02-08 05:26] LABS: PHOSPHORUS* 3.6 mg/dL (2.5-4.9)
--- NOTE | 2019-02-08 06:28 | NUR ---
PT NOT PROGRESSING TOWARDS GOAL. OFF SEDATION WHEN ASSUMED CARE AT SHIFT CHANGE. HR AND BP SLOWLY INCREASING, PATIENT WITH FLUSHED FACE AND INCREASED DISCOMFORT PER VITALS WHEN TURNING OR DOING ORAL CARE. PATIENT STARTED ON PROPOFOL AROUND 2230, VITALS IMPROVED, PATIENT SEEMS TO BE MORE COMFORTABLE. TF RUNNING AT GOAL WITH MINIMAL RESIDUALS. Q2 TURNS FOR SKIN INTEGRITY.
[2019-02-08 11:38] LABS: BE -5.9 mmol/L (-2 to +3); PCO2 VENOUS 31.8 mmHg (41.0-51.0); PO2 VENOUS 65.7 mmHg (35.0-45.0)
--- NOTE | 2019-02-08 12:00 | NUR ---
SPOKE WITH SON TONYA AT BEDSIDE (PH [phone]), HE WAS ASKING ABOUT DPOA. SHOWED HIM THE COPY OF ADVANCE DIRECTIVE WE HAVE ON AN OLD CHART THAT NAMES PTS (WHO IS NOW ) FIRST AGENT, SON TONYA SECOND AGENT, AND SON VLAD THIRD AGENT. TONYA STATES 'THAT'S MY MOM'S HANDWRITING, WE DIDN'T KNOW SHE EVER PUT THIS IN WRITING.' HE SAID HE AND HIS BROTHER HAVE TALKED, HE SAID PT 'WOULD NOT WANT TO LIVE LIKE THIS, WOULDN'T WANT TO JUST BE KEPT ALIVE BY MACHINES.' HE SPOKE WITH NEUROLOGIST EARLIER AND WANTS TO TALK WITH THE REST OF THE PHYSICIANS TODAY OR TOMORROW, THEN HE AND HIS BROTHER 'WILL MAKE SOME DECISIONS.' CASE MGT WILL CONTINUE TO FOLLOW.
--- NOTE | 2019-02-08 19:04 | NUR ---
PT ASSESSMENT CHARTED. VSS THROUGHOUT THE SHIFT. PT HAS POSITIVE GAG REFLEX, DOES NOT RESPOND TO PAIN, AND DOES NOT TRACK WITH EYES. FAMILY IN TO SEE PATIENT. THEY SPOKE WITH HIMS AND NEUROLOGY AND WOULD LIKE TO MEET WITH ALL MD'S INVOLVED TOMORROW. TO MAKE A DECISION REGARDING DOING PALLIATIVE CARE. TUBE FEEDING HELD FOR 1 HOUR FOR RESIDUAL X2 OF 75. PROPOFOL HAS BEEN OFF ALL DAY AND SHE APPEARS TO BE COMFORTABLE WITHOUT ANY PAIN.
[2019-02-09] VITALS (23 sets, daily range): BP systolic 149–179; BP diastolic 52–83
--- NOTE | 2019-02-09 05:48 | NUR ---
NO SIGNIFICANT CHANGES THROUGH THIS SHIFT, FENTANYL IV PUSHES ADMINISTERED Q2 FOR COMFORT PER CHANGES IN VITALS. [place] FOOT DROP, TREMOR LIKE ACTIVITIES TO TOES NOTED, BOTH WORSE ON LEFT FOOT. RESPIRATIONS AROUND 18-22 WITH AC OF 14. HYDRALAZINE X1 FOR HIGH BP. AFEBRILE. Q2 TURNS FOR SKIN INTEGRITY.
[2019-02-09 05:57] LABS: HEMATOCRIT 26.9 % (37.0-47.0); HEMOGLOBIN 8.7 gm/dL (12.0-15.0); MCH 30.5 pg (26.0-34.0); MCHC 32.5 g/dL (28.0-37.0); MCV 93.7 fL (80.0-100.0); MPV 8.3 fl. (7.2-11.1); RBC 2.87 mil/uL (4.20-5.00); RDW-CV 13.6 % (10.5-14.5)
[2019-02-09 06:08] LABS: CALCIUM 8.5 mg/dL (8.5-10.1); CREATININE 2.1 mg/dL (0.6-1.3); MAGNESIUM 1.9 mg/dL (1.8-2.4); POTASSIUM 4.9 mmol/L (3.5-5.1)
--- NOTE | 2019-02-09 16:17 | NUR ---
PATIENT REMAINS INTUBATED NO PURPOSEFUL MOVEMENT NOTED. FAMILY AT BEDSIDE THIS AM. DCD CVP LINE.
[2019-02-10] VITALS (29 sets, daily range): BP systolic 115–153; BP diastolic 64–97
[2019-02-10 05:14] LABS: HEMATOCRIT 29.1 % (37.0-47.0); HEMOGLOBIN 9.6 gm/dL (12.0-15.0); MCHC 33.1 g/dL (28.0-37.0); MCV 93.4 fL (80.0-100.0); MPV 8.5 fl. (7.2-11.1); RBC 3.12 mil/uL (4.20-5.00); RDW-CV 13.6 % (10.5-14.5); WBC 16.4 thou/uL (4.0-11.0)
[2019-02-10 05:21] LABS: CALCIUM 9.2 mg/dL (8.5-10.1); POTASSIUM 5.3 mmol/L (3.5-5.1)
--- NOTE | 2019-02-10 05:55 | NUR ---
ASSUMED CARE AT 1900H.PT ON VENTILATOR AND CONTINOUS FEEDING.PT IS STABLE THE WHOLE NIGHT.NO DISTRESSA AND AT 0000H PT TEMP WAS 99FARENHEIT. SPONGE BATH GIVEN, LATEST TEMP 98.2FARENHEIT. PT' ELDEST SON WANT TO TALK TO NEUROLOGY REGARDING THE PT'S PROGNOSIS. HE WANT'S TO HEAR DIRECTLY TO THE DOCTOR. ADVICE TO COME EARLY BUT HE HAVE WORK AND AGREED TO CALL HIM VIA CP IF NEUROLOGY COMES TO VISIT.
--- NOTE | 2019-02-10 06:23 | NUR ---
TALKED TO HIMS AND INFORMED HIM K - 5.3 AND PT HAS 7AM DOSE OF DIGOXIN. ACCORDING TO DOCTOR HOLD DIGOXIN FOR NOW AND WE WILL MANAGE THE K THIS MORNING.
--- NOTE | 2019-02-10 09:34 | NUR ---
5644 ASSUMED CARE OF PATIENT. PLEASE SEE DOCUMENTED ASSESSMENT. PT INCONTINENT OF LARGE AMOUNT STOOL. PT UNRESTRAINED ON VENTILATOR
--- NOTE | 2019-02-10 18:22 | NUR ---
NO PROGRESSION TOWARDS GOALS.UNABLE TO DO WEANING TRIAL DUES TO NEURO STATUS. PT IS UNRESTRAINED ON VENTILATOR. FIO2 AT 28%. SEEN BY NEURO AND STARTED ON KEPPRA. DR PULIDO TRIED TO CALL SON VLAD BUT DID NOT ANSWER PHONE. NO VISITORS TODAY. PLAN IS FOR REPEAT EEG TOMORROW. PATIENT DOES BECOME TACHYPNEIC AT TIMES.
[2019-02-11] VITALS (20 sets, daily range): BP systolic 108–150; BP diastolic 59–91
[2019-02-11 05:13] LABS: HEMATOCRIT 29.5 % (37.0-47.0); HEMOGLOBIN 9.7 gm/dL (12.0-15.0); MCH 30.6 pg (26.0-34.0); MCHC 32.7 g/dL (28.0-37.0); MCV 93.5 fL (80.0-100.0); MPV 8.2 fl. (7.2-11.1); RBC 3.16 mil/uL (4.20-5.00); RDW-CV 13.2 % (10.5-14.5); WBC 19.4 thou/uL (4.0-11.0)
[2019-02-11 05:47] LABS: ALBUMIN 2.5 g/dL (3.4-5.0); CALCIUM 9.7 mg/dL (8.5-10.1); CREATININE 1.7 mg/dL (0.6-1.3); TOTAL BILIRUBIN 0.4 mg/dL (<0.1-1.0); TOTAL PROTEIN 5.8 g/dL (6.4-8.2)
--- NOTE | 2019-02-11 05:58 | NUR ---
ASSUMED CARE AT 1900H. PT ON VENTILATOR, NO SEDATION AND CONTINOUS FEEDING VIA OG. PT REMAIN STABLE THE WHOLE NIGHT AND NO DISTRESS. STILL WITH FACIAL AND LEFT FOOT TWITCHING NOTED. NO FAMILY MEMBER CAME. ELDEST SON STILL NOT YET TALK TO THE NEUROLOGY DOCTOR AND STILL TO DECIDE FOR COMFORT CARE BY THE FAMILY.
--- NOTE | 2019-02-11 10:00 | NUR ---
PT WITHDRAWS TO PAIN. VSS. AFEBRILE. PT REPOSITIONED. ORAL CARE GIVEN. NO SUPPORT PERSON AT BEDSIDE.
--- NOTE | 2019-02-11 16:40 | NUR ---
PT HAS LARGE AMOUNTS OF THICK ORAL SECRETIONS. ORAL CARE GIVEN. PT REPOSITIONED. VSS. AFEBRILE. TUBE FEEDINGS RUNNING AT 50ML/ HOUR. NO ACUTE EVENTS THIS SHIFT.
--- NOTE | 2019-02-12 07:39 | NUR ---
Pt's family members arrived at 1999 last pm, state they wish to have pt extubated and placed on comfort measures per previously stated wishes of pt; state "she would not want to live this way." Pt extubated at 2130, OG dc'd at that time as well. Pt medicated with morphine for comfort; see NOV. Pt's family left before midnight after verifying that pt will likely survive the night; state they will return in the morning. HR 100s per monitor, RR 20s, pulseox upper 80s.
[2019-02-12 08:39] VITALS: BP 165/87
--- NOTE | 2019-02-12 10:15 | NUR ---
PT MADE COMFORT CARE LAST EVENING BY FAMILY, EXTUBATED LAST EVENING. PT RESPONDS TO PAIN ONLY. NO FAMILY HERE AT THIS TIME BUT SOMEONE HAS CALLED THIS MORNING TO CHECK ON HER. FAMILY WAS ALL HERE LAST EVENING, PER NURSING.
--- NOTE | 2019-02-12 14:41 | NUR ---
PATIENT CAME TO THE FLOOR VIA BED FROM THE ICU VIA BED. ON COMFORT CARE STATUS, WAS BREATHING BUT UNRESPONSIVE TO ANYTHING BUT PAIN. FAMILY CAME TO THE BEDSIDE A FEW MINUTES LATER. ORIENTATION DONE FOR FAMILY, COMFORT CARE CART BROUGHT UP FOR FAMILY. PATIENT PASSED AT 1430. FAMILY WAS AT BEDSIDE AT THE TIME OF PASSING. [employer] CALLED, SECURITY NOTIFIED AND WILL CALL HOME AFTER MORE OF THE FAMILY ARRIVES.
--- NOTE | 2019-02-12 16:31 | CON ---
[address] [address] CONSULTATION Name: SCOTTY SANTAMARIA Room: [address] [place] .R.#: [id number] Admission: 02/03/19 Attend Phys: Camden Fitzpatrick MD Discharge: Date of : 36 Report #: [id number] THIS REPORT FOR: //name// CC: Gene Fitzpatrick DATE OF SERVICE: 02/07/2019 HISTORY OF PRESENT ILLNESS: This is an 78-year-old female patient who was evaluated by me to prognosticate the patient for hypoxic encephalopathy. I reviewed the patient's records and I talked to the nurse looking after this patient and I also called the patient's son and talked to him. This patient lives in a long term according to the son. She has a history of COPD. She has difficulty doing the activities of daily living. That is the main reason she was in long term. She underwent a prolonged resuscitation. She was hypotensive and now she opens her eyes, but does not follow any commands. She is on propofol. They stopped that. Then, her heart rates went pretty high. REVIEW OF SYSTEMS: Positive for COPD. She is on long-term oxygen. The patient also has atrial fibrillation. She is on long-term anticoagulation. She is being seen by multiple consultants at this time. She has a history of cardiac disease. She does have a history of hypertension as I understand. Her kidney function was impaired at this time. The last GFR is 20. This was the relevant 14-point review of system I can get in this patient. PAST MEDICAL HISTORY: Positive for atrial fibrillation with long-term anticoagulation. FAMILY HISTORY: Negative for early age stroke. SOCIAL HISTORY: This patient lives in a long term. PHYSICAL EXAMINATION: Limited. She opens her eyes. She does not follow any commands. She is on a vent. She is hemodynamically stable. She is moderately built individual who does not have any dysmorphic features of eyes, ears and face. Last blood pressure is 125/44, respiration is 24, pulse is 68 and the temperature is 98.4. She did have a CT scan and in fact she had twice. That does confirm the finding of cerebral edema in this patient. IMPRESSION: I talked to the patient's son in detail. I discussed with her that she had structural injury to her brain. Vast majority of these patients have a very poor quality of the life from this kind of injury. He indicated to me that the patient was no code even in the long term and they coded her by mistake and they are thinking of discontinuing life support measure on her and that is a reasonable thing to do if that was her wishes. I will get an EEG done to further evaluate that. I did ask the nurses to discontin[place] [id number] CONSULTATION Name: SANTAMARIASCOTTY Isabel Room: [address] IN [facility]#: [id number] Admission: 02/03/19 Attend Phys: Camden Fitzpatrick MD Discharge: Date of : 36 Report #: [id number] can before the EEG. I will talk to them tomorrow again. Time spent 35 minutes, majority of the time counseling and coordinating. <ELECTRONICALLY SIGNED> By: Sherif Guardado MD 02/12/19 1631 [id number] Guardado MD /nt
--- NOTE | 2019-02-12 16:31 | EEG ---
[address] [address] EEG STUDY REPORT Name: SCOTTY SANTAMARIA Room: [address] [place] .#: [id number] Admission: 02/03/19 Attend Phys: Camden Fitzpatrick MD Discharge: Date of : 36 Report #: [id number] THIS REPORT FOR: //name// CC: Gene Fagantiffanie Camden Fitzpatrick DATE OF SERVICE: 02/07/2019 This patient is being evaluated for cardiac arrest. EEG was done by placing the electrode by standard 10-20 system of electrode placement. A lot of artifact is present on the left side. On the right side, the patient has very low voltage activities. It is not possible to determine the frequency. It would appear it is about 5-6 Hz and less than 5 microvolt. Photic stimulation was unremarkable. IMPRESSION: This is a severely abnormal EEG consistent with severe encephalopathy. Clinical correlation is recommended. <ELECTRONICALLY SIGNED> By: Sherif Guardado MD 02/12/19 1631 [id number] Guardado MD /nt
[2019-02-12 18:25] VITALS: BP 165/87
== END 2019-02-12 18:21 | DRG 870 ==
LOC: M.ERS 21:54 → M.TBA-ER 23:21 → M.ICU 23:21 → M.3W 02-12 12:51
PROVIDERS: Family Medicine; Internal Medicine; Internal Medicine Critical Care Medicine; Internal Medicine Pulmonary Disease; ADMIT Family Medicine
PROC: 5A12012 Performance of Cardiac Output, Single, Manual (ICD-10-PCS; principal; 2019-02-03)
PROC: 0BH17EZ Insertion of Endotracheal Airway into Trachea, Via Natural or Artificial Opening (ICD-10-PCS; 2019-02-03)
PROC: 5A1955Z Respiratory Ventilation, Greater than 96 Consecutive Hours (ICD-10-PCS; 2019-02-03)
PROC: 02HV33Z Insertion of Infusion Device into Superior Vena Cava, Percutaneous Approach (ICD-10-PCS; 2019-02-03)
DX: A41.9 Sepsis, unspecified organism (principal); J96.22 Acute and chronic respiratory failure with hypercapnia; J96.21 Acute and chronic respiratory failure with hypoxia; N17.0 Acute kidney failure with tubular necrosis; I21.A1 Myocardial infarction type 2; J69.0 Pneumonitis due to inhalation of food and vomit; K72.01 Acute and subacute hepatic failure with coma; S22.43XA Multiple fractures of ribs, bilateral, initial encounter for closed fracture; G93.1 Anoxic brain damage, not elsewhere classified; I13.0 Hypertensive heart and chronic kidney disease with heart failure and stage 1 through stage 4 chronic kidney disease, or unspecified chronic kidney disease; J98.11 Atelectasis; S36.029A Unspecified contusion of spleen, initial encounter; I50.32 Chronic diastolic (congestive) heart failure; E44.0 Moderate protein-calorie malnutrition; E87.2 Acidosis; R57.0 Cardiogenic shock; I25.10 Atherosclerotic heart disease of native coronary artery without angina pectoris; J44.9 Chronic obstructive pulmonary disease, unspecified; I48.0 Paroxysmal atrial fibrillation; I27.20 Pulmonary hypertension, unspecified; E03.9 Hypothyroidism, unspecified; E78.5 Hyperlipidemia, unspecified; M19.90 Unspecified osteoarthritis, unspecified site; F17.210 Nicotine dependence, cigarettes, uncomplicated; I49.1 Atrial premature depolarization; Z66 Do not resuscitate; N18.3 Chronic kidney disease, stage 3 (moderate); E11.22 Type 2 diabetes mellitus with diabetic chronic kidney disease; X58.XXXA Exposure to other specified factors, initial encounter; K75.89 Other specified inflammatory liver diseases; I95.9 Hypotension, unspecified; I08.0 Rheumatic disorders of both mitral and aortic valves; Z96.641 Presence of right artificial hip joint; D64.9 Anemia, unspecified; E87.5 Hyperkalemia; Z51.5 Encounter for palliative care; Z95.1 Presence of aortocoronary bypass graft; Z79.01 Long term (current) use of anticoagulants; Z68.26 Body mass index [BMI] 26.0-26.9, adult; Z88.0 Allergy status to penicillin; Z79.899 Other long term (current) drug therapy; Z79.82 Long term (current) use of aspirin; Z79.4 Long term (current) use of insulin; Z86.73 Personal history of transient ischemic attack (TIA), and cerebral infarction without residual deficits; Z90.49 Acquired absence of other specified parts of digestive tract; Z90.710 Acquired absence of both cervix and uterus; Z85.3 Personal history of malignant neoplasm of breast; Z85.810 Personal history of malignant neoplasm of tongue; Z98.42 Cataract extraction status, left eye; Z98.41 Cataract extraction status, right eye; Z90.89 Acquired absence of other organs; Z95.5 Presence of coronary angioplasty implant and graft; Z82.5 Family history of asthma and other chronic lower respiratory diseases; Y93.89 Activity, other specified; Y92.89 Other specified places as the place of occurrence of the external cause; Y99.8 Other external cause status; Z99.81 Dependence on supplemental oxygen; Z92.3 Personal history of irradiation